=== PATIENT | female | born 1960 | race Two or more races ===

== ENCOUNTER → 2020-12-18 | Outpatient (CLI) | payer MEDICAID ==
[2020-12-18 12:14] LABS: BASO % 0.6 % (0.0-1.0); EOS # 0.1 10^3/uL (0.0-0.5); EOS % 1.2 % (0.0-3.0); HEMATOCRIT 38.3 % (36.0-47.0); HEMOGLOBIN 12.4 g/dl (12.0-15.5); LYMPH # 2.8 10^3/uL (1.5-5.0); LYMPH % 43.5 % (24.0-44.0); MEAN CORPUSCULAR HEMOGLOBIN 28.8 pg (27.0-33.0); MEAN CORPUSCULAR HGB CONC 32.4 g/dl (32.0-36.5); MEAN CORPUSCULAR VOLUME 88.9 fl (80.0-96.0); MONO # 0.4 10^3/uL (0.0-0.8); MONO % 5.6 % (2.0-8.0); NEUTROPHILS # 3.1 10^3/uL (1.5-8.5); NEUTROPHILS % 48.9 % (36.0-66.0); PLATELET COUNT, AUTOMATED 189 10^3/uL (150-450); RED BLOOD COUNT 4.31 10^6/uL (4.00-5.40); WHITE BLOOD COUNT 6.4 10^3/uL (4.0-10.0)
[2020-12-18 12:41] LABS: HEMOGLOBIN A1c 5.7 %
[2020-12-18 12:45] LABS: ALBUMIN 3.7 GM/DL (3.2-5.2); ALT/SGPT 27 U/L (12-78); BILIRUBIN,TOTAL 0.4 MG/DL (0.2-1.0); BLOOD UREA NITROGEN 14 MG/DL (7-18); CALCIUM LEVEL 8.7 MG/DL (8.8-10.2); CARBON DIOXIDE LEVEL 30 MEQ/L (21-32); CHLORIDE LEVEL 106 MEQ/L (98-107); CHOLESTEROL LEVEL 180 MG/DL (<200); CREATININE FOR GFR 0.65 MG/DL (0.55-1.30); FREE T4 0.98 NG/DL (0.76-1.46); GLOMERULAR FILTRATION RATE > 60.0 (>45); GLUCOSE, FASTING 110 MG/DL (70-100); HDL CHOLESTEROL 40 MG/DL (>40); LDL CHOLESTEROL 116 MG/DL (<100); NON-HDL-C 140 MG/DL; POTASSIUM SERUM 3.6 MEQ/L (3.5-5.1); SODIUM LEVEL 140 MEQ/L (136-145); THYROID STIMULATING HORMONE 0.854 uIU/ML (0.358-3.740); TRIGLYCERIDES LEVEL 122 MG/DL (<150)
== END ==
LOC: M LAB 11:14
PROVIDERS: ATTEND Student in an Organized Health Care Education/Training Program
DX: E11.9 Type 2 diabetes mellitus without complications (principal); I10 Essential (primary) hypertension; R53.83 Other fatigue

== ENCOUNTER → 2021-01-01 | Outpatient (CLI) | payer MEDICAID ==
--- NOTE | 2021-01-01 19:02 | REP ---
INDICATION: DORSALGIA, UNSPECIFIED. COMPARISON: None. TECHNIQUE: AP and lateral views of the lumbar spine with thoracal lumbar junction. [id number] extends up to T5-6 disc level. FINDINGS: Patient has intramedullary rods bilaterally with bilateral pedicle screws at T9, left at T7 and T5, right T6 pedicle. No significant kyphosis. There is very minimal levoconvex curvature at the thoracolumbar junction on the AP view. Pedicles and spinous processes in the lumbar spine as well as transverse processes are intact. Posterior rib articulations unremarkable. The lateral view shows marginal osteophytes throughout and facet arthropathy lower lumbar spine at L4-5 and L5-S1. No compression deformity or destructive lesions from T6 through L5. IMPRESSION: S/p intramedullary rods in the thoracic spine extending down to pedicles a T9 with the upper aspect of the rods not on the field of view. No compression deformity or destructive lesion. Some minor degenerative changes at multiple endplates. Some minor facet arthropathy at L4-5, greater at L5-S1. No compression fracture, spondylolysis or other acute bony finding. Very mild levoconvex curve at the thoracolumbar junction and upper lumbar spine. <Electronically signed by Gordon Marks > 01/01/21 [id number]
== END ==
LOC: M RAD 10:52
PROVIDERS: ATTEND Student in an Organized Health Care Education/Training Program
DX: M54.9 Dorsalgia, unspecified (principal)

== ENCOUNTER 2021-01-22 23:19 | Inpatient (IN) | payer MEDICAID, SELFPAY ==
[~2021-01-22] VITALS: Ht 152.4 cm; Wt 59.9 kg
[2021-01-22] MEDS: BISACODYL 5 MG TAB PO SCH (21:00)
[2021-01-22] MEDS ORDERED: GABA-283 PO (23:43)
[2021-01-22] MEDS ORDERED: METF-839 PO (23:43)
[2021-01-22] MEDS ORDERED: ATOR1TAB19 PO (23:43)
[2021-01-22] MEDS ORDERED: LOSA100T8 PO (23:43)
[2021-01-22] MEDS ORDERED: ATEN50TA2 PO (23:43)
[2021-01-22] MEDS ORDERED: OMEP40CA4 PO (23:43)
[2021-01-23 00:16] LABS: BASO % 0.4 % (0.0-1.0); EOS # 0.1 10^3/uL (0.0-0.5); EOS % 1.2 % (0.0-3.0); HEMATOCRIT 38.8 % (36.0-47.0); LYMPH # 3.7 10^3/uL (1.5-5.0); LYMPH % 44.2 % (24.0-44.0); MEAN CORPUSCULAR HEMOGLOBIN 29.3 pg (27.0-33.0); MEAN CORPUSCULAR HGB CONC 33.5 g/dl (32.0-36.5); MEAN CORPUSCULAR VOLUME 87.6 fl (80.0-96.0); MONO # 0.5 10^3/uL (0.0-0.8); MONO % 5.9 % (2.0-8.0); NEUTROPHILS % 48.1 % (36.0-66.0); PLATELET COUNT, AUTOMATED 183 10^3/uL (150-450); RED BLOOD COUNT 4.43 10^6/uL (4.00-5.40); WHITE BLOOD COUNT 8.3 10^3/uL (4.0-10.0)
[2021-01-23] MEDS ORDERED: ISOVUE-370 76% 100ML VIAL As Ordered ONE (00:32)
[2021-01-23 01:07] LABS: CK-MB VALUE MASS 23.6 NG/ML (<3.6); CPK CREATINE PHOSPHOKINASE 114 U/L (26-192); TROPONIN I < 0.02 NG/ML (< 0.10)
[2021-01-23] MEDS ORDERED: BISA5TAB15 PO (01:29)
[2021-01-23] MEDS ORDERED: ACET-683 PO (01:29)
[2021-01-23] MEDS ORDERED: HOME MED LIST COMPLETE! XX SCH (01:30)
[2021-01-23] MEDS ORDERED: LABETALOL 100MG/20ML VIAL IV STA (02:01)
[2021-01-23] MEDS ORDERED: MAALOX 30 ML SUSP *UDC PO PRN (02:05)
[2021-01-23] MEDS ORDERED: MOM 30ML SUSPENSION UDC PO PRN (02:05)
--- NOTE | 2021-01-23 02:27 | HPEPDOC ---
[facility] Medical History & Physical Date of Admission Jan 23, 2021 Date of Service: Jan 23, 2021 History and Physical CHIEF COMPLAINT: SYNCOPE HISTORY OF PRESENT ILLNESS: 60 yo F, with a PMHx of DM2, HTN, back pain s/p surgical hardware implantation in [place], brought to ER by her son, after she suffered a syncopal episode preceded by dizziness. The patient speaks Amharic, and her son is translating. She was out of consciousness for < 10 seconds according to her son, without tonic clonic movement, urinary incontience. He s tates she had a possible drooping or grimace of her lips on the R side, but this resolved as soon as she regained consciousness. Patient has been having elevated BP for past 3 days, with SBP in the 180-200 mmHg range. Patient denies any chest pain, palpitations, fevers, chills, blurred vision, but does endorse recently worsening orthopnea and lower extremity edema with reduced exercise tolerance. On arrival to ER, patient in hypertensive urgency SBP 200 mmHg. No fever, no leukocytosis, no electrolyte abnormalities. EKG showing NSR. CT head, CTA head and neck were reported to ER provider as normal. Unfortunately the final reports are not available in [facility] at the time of my examination. Patient will be admitted to hospitalist service for workup of syncopal episode, possible TIA. PAST MEDICAL HISTORY: HTN DM2 GERD Thoracic compressive myelopathy PAST SURGICAL HISTORY: Spinal surgery with hardware implantation in 2018 Eye surgery SOCIAL HISTORY: Patient denies smoking Patient denies etoh use Patient denies illicit drug use FAMILY HISTORY: Mother, father 2 sons, both healthy ALLERGIES: Please see below. REVIEW OF SYSTEMS: 10 point ROS conducted, relevant findings are noted in the HPI HOME MEDICATIONS: Please see below. PHYSICAL EXAMINATION: VITAL SIGNS: please see below General: NAD, comfortable HEENT: PERRLA, EOMI, sclerae clear Neck: supple, normal ROM, no JVD Respiratory: lungs CTAB, no wheeze, no rales, no crackles CVS: RRR, normal S1, S2, no murmurs Abdo: soft, no masses, no hepatosplenomegaly, BS+, no rebound tenderness Extremities: no edema, pulses 2+ MSK: no joint deformities, normal ROM Neuro: no focal neuro deficits, moving all 4 extremities, CN2-12 intact. Strength 5/5 in all 4 extremities. No nystagmus. Psych: calm, cooperative, AAO x 3 LABORATORY DATA: See below. IMAGING: CT head, CTA head and neck were performed in ER on 01/23/21. I was informed by Dr. Aviles that V-rad confirmed no acute findings. MICROBIOLOGY: Please see below. ASSESSMENT: 60 yo F, with a PMHx of DM2, HTN, back pain s/p surgical hardware implantation in [place], brought to ER by her son, after she suffered a syncopal episode preceded by dizziness. The patient speaks Amharic, and her son is translating. She was out of consciousness for < 10 seconds according to her son, without tonic clonic movement, urinary incontience. He states she had a possible drooping or grimace of her lips on the R side, but this resolved as soon as she regained consciousness. Patient has been having elevated BP for past 3 days, with SBP in the 180-200 mmHg range. Patient denies any chest pain, palpitations, fevers, chills, blurred vision, but does endorse recently worsening orthopnea and lower extremity edema with reduced exercise tolerance. On arrival to ER, patient in hypertensive urgency SBP 200 mmHg. No fever, no leukocytosis, no electrolyte abnormalities. EKG showing NSR. CT head, CTA head and neck were reported to ER provider as normal. Unfortunately the final reports are not available in [facility] at the time of my examination. Patient will be admitted to hospitalist service for workup of syncopal episode, possible TIA. . PLAN: Syncopal episodes 2/2 possible cardiac arrhythmia vs seizure disorder vs TIA - patient is at baseline at the time of my exam - found to be hypertensive in ER - EKG showing NSR - Trop < 0.02 - CT head, CTA head and neck wnl per V-rad - admit to tele floor for monitoring of arrhythmias - check 2D echo - check orthostatics - ordered EEG - to obtain MRI brain wo contrast. Patient has metal hardware from thoracic back surgery in [place] in 2018. Son states he has records at home which may help determine if hardware is safe for MRI - PT/OT ordered. DM2 - ISS, FSBS AC and HS - Hypoglycemic precautions HTN - initially in hypertensive urgency - repeat vitals showing SBP 160 - resume home antihypertensive regimen: losartan 100 mg daily, HCTZ 12.5mg, atenolol 50 mg daily Orthopnea/reduced exercise tolerance - BNP pending - no clinical signs of fluid overload - 2D echo ordered Dispo: pending clinical improvement. Vital Signs Vital Signs Date Time Temp Pulse Resp B/P (MAP) Pulse Ox O2 Delivery O2 Flow Rate FiO2 01/23/21 01:01 98.1 01/22/21 23:21 64 20 207/93 99 Room Air Laboratory Data Labs 24H Laboratory Tests 2 01/22/21 23:56: Immature Granulocyte % (Auto) 0.2, Neutrophils (%) (Auto) 48.1, Lymphocytes (%) (Auto) 44.2H, Monocytes (%) (Auto) 5.9, Eosinophils (%) (Auto) 1.2, Basophils (%) (Auto) 0.4, Neutrophils # (Auto) 4.0, Lymphocytes # (Auto) 3.7, Monocytes # (Auto) 0.5, Eosinophils # (Auto) 0.1, Basophils # (Auto) 0.0, Nucleated Red Blood Cells % (auto) 0.0, Total Creatine Kinase 114, Creatine Kinase MB 23.6H, Creatine Kinase MB Relative Index 20.70H, Troponin I < 0.02 01/23/21 00:12: POC Glucose (Misc Panel) 94, POC Sodium (Misc Panel) 143, POC Potassium (Misc Panel) 3.6, POC Chloride (Misc Panel) 103, POC Total CO2 (Misc Panel) 26.0, POC Blood Urea Nitrogen (Misc Panel 15, POC Ionized Calcium (Misc Panel) 4.7, POC Creatinine (Misc Panel) 0.7, POC Hematocrit (Misc Panel) 38.0 CBC/BMP Laboratory Tests 01/22/21 23:56 Home Medications Scheduled Acetaminophen (Acetaminophen) 500 Mg Tablet, 500 MG PO BID Atenolol (Atenolol) 50 Mg Tablet, 50 MG PO DAILY Atorvastatin Calcium (Atorvastatin Calcium) 10 Mg Tablet, 10 MG PO DAILY Bisacodyl (Bisacodyl) 5 Mg Tablet.dr, 10 MG PO QHS Gabapentin (Gabapentin) 400 Mg Capsule, 400 MG PO TID Losartan/Hydrochlorothiazide (Losartan-Hctz 100-12.5 mg Tab) 1 Each Tablet, 1 TAB PO DAILY Metformin HCl (Metformin HCl) 500 Mg Tablet, 500 MG PO DAILY Omeprazole (Omeprazole) 40 Mg Capsule.dr, 40 MG PO DAILY Allergies Coded Allergies: No Known Allergies (Unverified , 01/22/21) A-FIB/CHADSVASC A-FIB History Current/History of A-Fib/PAF?: No AZRA NOGUERA MD Jan 23, 2021 02:27
[2021-01-23 02:39] LABS: NT-PRO BNP 117 PG/ML (<125)
[2021-01-23] MEDS ORDERED: hydroCHLOROthiazide 12.5 MG CAPSULE PO ONE (03:00)
[2021-01-23 03:53] LABS: RSV AMPLIFICATION NEGATIVE (NEGATIVE)
[2021-01-23 04:30] VITALS: BP 143/66
[2021-01-23] MEDS: ACETAMINOPHEN TAB 650MG DOSE (2X325MG) PO PRN (05:02)
[2021-01-23] MEDS: HEPARIN SOD (PORCINE) 5000UNITS/ML 1ML VIAL/SYRINGE SC SCH ×3 (05:03→21:51)
[2021-01-23 08:00] VITALS: BP_SYST 140; BP_SYST 143; BP_SYST 152; BP_DIAS 56; BP_DIAS 64; BP_DIAS 69
[2021-01-23] MEDS: GABAPENTIN 400MG CAP PO SCH ×3 (08:36→21:51)
[2021-01-23] MEDS: DOCUSATE SODIUM 100MG CAPSULE PO SCH ×2 (08:36→21:51)
[2021-01-23] MEDS: OMEPRAZOLE 20 MG CAP PO SCH (08:36)
[2021-01-23] MEDS: ATORVASTATIN 10 MG TAB PO SCH (08:37)
[2021-01-23] MEDS: hydroCHLOROthiazide 12.5 MG CAPSULE PO SCH (08:37)
[2021-01-23] MEDS: atenoloL 50 MG TAB PO SCH (08:37)
[2021-01-23] MEDS: LOSARTAN 50MG TABLET PO SCH (08:37)
[2021-01-23] MEDS ORDERED: atenoloL 50 MG TAB PO SCH (09:00)
[2021-01-23] MEDS ORDERED: hydroCHLOROthiazide 12.5 MG CAPSULE PO SCH (09:00)
[2021-01-23] MEDS ORDERED: SLF 3 ML SYR IV PRN (10:05)
[2021-01-23 12:00] VITALS: BP 140/65
[2021-01-23] MEDS: SLF 3 ML SYR IV SCH ×2 (13:30→21:52)
[2021-01-23 16:00] VITALS: BP 103/59
[2021-01-23 17:43] VITALS: BP 116/57
[2021-01-23 20:00] VITALS: BP 134/60
--- NOTE | 2021-01-23 20:23 | ECGEPIP ---
[facility] - ED Test Date: 2021-01-23 Pat Name: MOST QUINN Department: Room: [place] [address] Gender: Female Pathology Technician: GRACE : 1960 Requested By: John Silveira Order Number: [id number] Reading MD: Milli Alvarado Measurements Intervals [place] Rate: 61 P: 35 NM: 158 QRS: 23 QRSD: 76 T: 11 QT: 420 QTc: 422 Interpretive Statements Normal sinus rhythm No prior Electronically Signed on 01-23-2021 20:23:06 EDT by Milli Alvarado
[2021-01-23] MEDS: BISACODYL 5 MG TAB PO SCH (21:50)
[2021-01-24] VITALS: BP 119/58
[2021-01-24 04:00] VITALS: BP 118/60
[2021-01-24 05:57] LABS: HEMATOCRIT 39.1 % (36.0-47.0); HEMOGLOBIN 12.8 g/dl (12.0-15.5); MEAN CORPUSCULAR HEMOGLOBIN 29.1 pg (27.0-33.0); MEAN CORPUSCULAR HGB CONC 32.7 g/dl (32.0-36.5); MEAN CORPUSCULAR VOLUME 88.9 fl (80.0-96.0); PLATELET COUNT, AUTOMATED 183 10^3/uL (150-450); WHITE BLOOD COUNT 8.2 10^3/uL (4.0-10.0)
[2021-01-24] MEDS: HEPARIN SOD (PORCINE) 5000UNITS/ML 1ML VIAL/SYRINGE SC SCH ×3 (06:00→22:16)
[2021-01-24 06:26] LABS: BLOOD UREA NITROGEN 13 MG/DL (7-18); CALCIUM LEVEL 8.5 MG/DL (8.8-10.2); CARBON DIOXIDE LEVEL 32 MEQ/L (21-32); CHLORIDE LEVEL 105 MEQ/L (98-107); GLOMERULAR FILTRATION RATE > 60.0 (>45); GLUCOSE, FASTING 112 MG/DL (70-100); SODIUM LEVEL 139 MEQ/L (136-145)
[2021-01-24] MEDS: SLF 3 ML SYR IV SCH ×3 (06:38→22:16)
[2021-01-24 08:00] VITALS: BP 141/63
[2021-01-24] MEDS: OMEPRAZOLE 20 MG CAP PO SCH (08:16)
[2021-01-24] MEDS: hydroCHLOROthiazide 12.5 MG CAPSULE PO SCH (08:16)
[2021-01-24] MEDS: LOSARTAN 50MG TABLET PO SCH (08:16)
[2021-01-24] MEDS: ATORVASTATIN 10 MG TAB PO SCH (08:16)
[2021-01-24] MEDS: DOCUSATE SODIUM 100MG CAPSULE PO SCH ×2 (08:16→20:33)
[2021-01-24] MEDS: atenoloL 50 MG TAB PO SCH (08:17)
[2021-01-24] MEDS: GABAPENTIN 400MG CAP PO SCH ×3 (08:17→20:33)
--- NOTE | 2021-01-24 08:21 | REP ---
INDICATION: r/o CVA. Repeat dictation. Preliminary report is provided at the time of the exam by oleg LORENZ. COMPARISON: Comparison head CT study 23 January 2021 ... TECHNIQUE: Axial and sagittal imaging planes are utilized for T1 and T2-weighted scans. Sequences include spin-echo, fast spin echo, FLAIR, and diffusion weighted sequences. FINDINGS: No bony calvarial lesion is seen. Craniocervical junction and upper cervical cord are normal in appearance. There is no MR evidence of significant paranasal sinus disease. No intraorbital abnormality is seen. The lateral, third, and fourth ventricles are normal in size and position. Barr-white differentiation pattern is intact above and below the tentorium. There is no evidence of intracranial hemorrhage. No mass, infarction, extra-axial fluid collection or midline shift is seen. No abnormal white matter lesion is seen. IMPRESSION: Negative noncontrast brain MRI study. <Electronically signed by Jm Leon > 01/24/21 [id number]
--- NOTE | 2021-01-24 08:22 | REP ---
INDICATION: syncope. Repeat dictation. Preliminary report is provided at the time of the exam by oleg MAURER. COMPARISON: None. TECHNIQUE: Helical scanning is acquired. 5 mm axial images were reformatted. Coronal MPR images were generated. FINDINGS: Bone window settings demonstrate an intact bony calvarium. There is no evidence of skull fracture or incidental bony calvarial lesion. The visualized paranasal sinuses appear clear. No intraorbital abnormality is seen. On soft tissue window setting images; the lateral, third, and fourth ventricles are normal in size and position. Barr-white differentiation pattern is normal above and below the tentorium. There are is no evidence of intracranial hemorrhage. No mass, edema, infarction, or midline shift is seen. No extra-axial fluid collection is appreciated. IMPRESSION: Negative noncontrast head CT. <Electronically signed by Jm Leon > 01/24/21 [id number]
--- NOTE | 2021-01-24 08:24 | REP ---
INDICATION: syncope COMPARISON: Repeat dictation. Preliminary report is provided at the time of the exam by oleg LORENZ. TECHNIQUE: Contrast enhancement dose is 100 mL of intravenous Isovue 370. Helical scanning is acquired. 2 mm axial images are re-formatted. Coronal and sagittal MPR images are generated. Coronal and sagittal MIP and oblique MPR images are generated. 3D surface rendered images are generated and viewed rotationally. FINDINGS: There is good opacification of the arterial tree. The visualized transverse aortic arch is unremarkable with minimal vascular calcification. Great vessel origins are intact. The subclavian arteries are unremarkable. The common carotid arteries are widely patent. Carotid bifurcations are free of significant atherosclerotic change. No stenosis is seen in either internal carotid. These cervical segments of the vertebral arteries are patent and symmetric.. Maximum intensity projection and MPR images show no additional abnormality. IMPRESSION: Unremarkable CT angiography of the neck. <Electronically signed by Jm Leon > 01/24/21 [id number]
--- NOTE | 2021-01-24 08:39 | REP ---
INDICATION: syncope. Repeat dictation. Preliminary report is provided at the time of the exam by oleg LORENZ. COMPARISON: Comparison is made with noncontrast head CT from the same date.. TECHNIQUE: CT contrast dose: 100 ml of intravenous Isovue 370. CT technique: Helical scanning is acquired. 2 mm axial images are reformatted. Maximal intensity projection and multiplanar re-formation images are generated along with 3-D surface rendered color imaging. FINDINGS: There is good opacification of the arterial tree. The distal vertebral arteries are patent. Left is somewhat smaller than right. Basilar artery is patent. Posterior cerebral and superior cerebellar vessels are unremarkable. The distal internal carotid arteries are intact and symmetric. No significant plaquing. The anterior cerebral and middle cerebral arteries are patent and symmetric. There is no evidence of angeles aneurysm or arteriovenous malformation. The dural sinuses are patent. No venous abnormality is seen. IMPRESSION: Unremarkable CT angiography of the brain. <Electronically signed by Jm Leon > 01/24/21 [id number]
--- NOTE | 2021-01-24 12:39 | IPNPDOC ---
Text Note Date of Service The patient was seen on 01/24/21. NOTE Subjective: Patient seen and examined at bedside. No acute overnight events reported. Patient voices no new medical complaints this morning. She denies any further headaches, dizziness, shortness of breath. PHYSICAL EXAMINATION: VITAL SIGNS: please see below General: NAD, comfortable HEENT: PERRLA, EOMI, sclerae clear Neck: supple, normal ROM, no JVD Respiratory: lungs CTAB, no wheeze, no rales, no crackles CVS: RRR, normal S1, S2, no murmurs Abdo: soft, BS+, no rebound tenderness Extremities: no edema, pulses 2+ MSK: no joint deformities, normal ROM Neuro: no focal neuro deficits, moving all 4 extremities, CN2-12 intact. Strength 5/5 in all 4 extremities. No nystagmus. Psych: calm, cooperative, AAO x 3 ASSESSMENT: 60 yo F, with a PMHx of DM2, HTN, back pain s/p surgical hardware implantation in [place], brought to ER by her son, after she suffered a syncopal episode preceded by dizziness. The patient speaks Setswana, and her son is translating. She was out of consciousness for < 10 seconds according to her son, without tonic clonic movement, urinary incontience. He states she had a possible drooping or grimace of her lips on the R side, but this resolved as soon as she regained consciousness. Patient has been having elevated BP for past 3 days, with SBP in the 180-200 mmHg range. Patient denies any chest pain, palpitations, fevers, chills, blurred vision, but does endorse recently worsening orthopnea and lower extremity edema with reduced exercise tolerance. On arrival to ER, patient in hypertensive urgency SBP 200 mmHg. No fever, no leukocytosis, no electrolyte abnormalities. EKG showing NSR. CT head, CTA head and neck were reported to ER provider as normal. Unfortunately the final reports are not available in [employer] at the time of my examination. Patient will be admitted to hospitalist service for workup of syncopal episode, possible TIA. . PLAN: Syncopal episodes - workup unrevealing - orthostatics negative, imaging negative - echocardiogram pending report - no further episoes - son described her working in the garden in the sun, symptoms possibly secondary to heat exposure - PT requiring 1-2 more sessions - no events on telemetry - EKG showing NSR #DM2 - ISS, FSBS AC and HS - Hypoglycemic precautions #HTN - initially in hypertensive urgency - repeat vitals showing SBP 160 - resumed home antihypertensive regimen: losartan 100 mg daily, HCTZ 12.5mg, atenolol 50 mg daily #Orthopnea/reduced exercise tolerance - no clinical signs of fluid overload - 2D echo pending report Dispo: pending further PT, anticipate d/c in 24-48 hours; extensive discussion with son Nico - [phone]. VS,Fishbone, I+O VS, Fishbone, I+O Laboratory Tests 01/24/21 05:36 Vital Signs Date Time Temp Pulse Resp B/P (MAP) Pulse Ox O2 Delivery O2 Flow Rate FiO2 01/24/21 08:17 62 01/24/21 08:16 120/60 01/24/21 08:00 97.7 16 99 Room Air I&O- Last 24 Hours up to 6 AM 01/24/21 06:00 Intake Total 120 ml Output Total 600 ml Balance -480 ml YUE CLARK MD Jan 24, 2021 12:39
[2021-01-24 14:00] VITALS: BP 121/63
[2021-01-24 15:36] VITALS: BP 102/49
[2021-01-24 19:56] VITALS: BP 122/56
[2021-01-24] MEDS: BISACODYL 5 MG TAB PO SCH (20:33)
[2021-01-25 00:09] VITALS: BP 123/58
[2021-01-25 04:00] VITALS: BP 122/61
[2021-01-25] MEDS: ACETAMINOPHEN TAB 650MG DOSE (2X325MG) PO PRN (04:50)
[2021-01-25 05:23] LABS: HEMATOCRIT 38.6 % (36.0-47.0); HEMOGLOBIN 12.6 g/dl (12.0-15.5); MEAN CORPUSCULAR HEMOGLOBIN 29.2 pg (27.0-33.0); MEAN CORPUSCULAR HGB CONC 32.6 g/dl (32.0-36.5); MEAN CORPUSCULAR VOLUME 89.4 fl (80.0-96.0); PLATELET COUNT, AUTOMATED 175 10^3/uL (150-450); RED BLOOD COUNT 4.32 10^6/uL (4.00-5.40); WHITE BLOOD COUNT 8.1 10^3/uL (4.0-10.0)
[2021-01-25 05:40] LABS: BLOOD UREA NITROGEN 12 MG/DL (7-18); CALCIUM LEVEL 8.6 MG/DL (8.8-10.2); CARBON DIOXIDE LEVEL 34 MEQ/L (21-32); CHLORIDE LEVEL 105 MEQ/L (98-107); CREATININE FOR GFR 0.65 MG/DL (0.55-1.30); GLOMERULAR FILTRATION RATE > 60.0 (>45); GLUCOSE, FASTING 104 MG/DL (70-100); POTASSIUM SERUM 3.4 MEQ/L (3.5-5.1); SODIUM LEVEL 141 MEQ/L (136-145)
[2021-01-25] MEDS: HEPARIN SOD (PORCINE) 5000UNITS/ML 1ML VIAL/SYRINGE SC SCH (05:50)
[2021-01-25] MEDS: SLF 3 ML SYR IV SCH (06:03)
[2021-01-25 07:30] VITALS: BP 131/59
[2021-01-25] MEDS: OMEPRAZOLE 20 MG CAP PO SCH (09:03)
[2021-01-25] MEDS: hydroCHLOROthiazide 12.5 MG CAPSULE PO SCH (09:03)
[2021-01-25 09:04] VITALS: BP 131/59
[2021-01-25] MEDS: ATORVASTATIN 10 MG TAB PO SCH (09:04)
[2021-01-25] MEDS: LOSARTAN 50MG TABLET PO SCH (09:04)
[2021-01-25] MEDS: atenoloL 50 MG TAB PO SCH (09:04)
[2021-01-25] MEDS: GABAPENTIN 400MG CAP PO SCH (09:04)
[2021-01-25] MEDS: DOCUSATE SODIUM 100MG CAPSULE PO SCH (09:04)
--- NOTE | 2021-01-25 09:18 | EEG ---
ELECTROENCEPHALOGRAM DATE: 01/24/2021 REFERRING PHYSICIAN: AZRA NOGUERA MD DIAGNOSIS: Syncope, concern for seizure. EEG#: [id number] HISTORY: The patient is a 60-year-old woman who was admitted to [facility] after a passing out spell which lasted for less than ten seconds. There were no tonic-clonic movements or urinary incontinence according to the patient's son. Her blood pressure was running high between 180-200. She is currently taking Atenolol, atorvastatin, Gabapentin, hydrochlorothiazide, losartan, omeprazole, etc. TECHNICAL DESCRIPTION: This digital electroencephalogram (EEG) was recorded by 21 scalp, ear, and two electrocardiogram (EKG) electrodes and was reviewed in bipolar and referential montages following reformatting in 10-20 international electrode placement system. INTERPRETATION: The patient was noted to be in awake and drowsy states during this EEG. Resting and awake background rhythm consisted of well-formed posterior dominant rhythm with anterior/posterior gradient comprising of 9 Hz alpha activity measuring 15-40 microvolts in amplitude which was symmetric and reactive to eye opening. Attenuation of posterior dominant rhythm was seen during transition to drowsiness. Anteriorly low voltage and mixed frequency activity was noted. No sleep was achieved. Hyperventilation was not performed. Photic stimulation remained unremarkable. EKG revealed normal sinus rhythm. No focal, lateralizing, or epileptiform abnormalities were seen. No relevant clinical activity was noted. CONCLUSION: This EEG in awake and drowsy states is within normal limits.
[2021-01-25] MEDS ORDERED: POTASSIUM CHLORIDE 10 MEQ SR TABLET PO ONE (10:25)
[2021-01-25 12:00] VITALS: BP 125/59
--- NOTE | 2021-01-25 23:23 | DS.PDOC ---
Discharge Summary General Date of Admission Jan 23, 2021 at 02:03 Date of Discharge Jan 25, 2021 Discharge Summary PROCEDURES PERFORMED DURING STAY: None ADMITTING DIAGNOSES: 1. Syncope 2. DM type 2 3. Hypertension DISCHARGE DIAGNOSES: 1. Syncope 2. DM type 2 3. Hypertension COMPLICATIONS/CHIEF COMPLAINT: Syncope. HISTORY OF PRESENT ILLNESS: Copied from admitting attending's H&P " 60 yo F, with a PMHx of DM2, HTN, back pain s/p surgical hardware implantation in [place], brought to ER by her son, after she suffered a syncopal episode preceded by dizziness. The patient speaks Azeri, and her son is translating. She was out of consciousness for < 10 seconds according to her son, without tonic clonic movement, urinary incontience. He states she had a possible drooping or grimace of her lips on the R side, but this resolved as soon as she regained consciousness. Patient has been having elevated BP for past 3 days, with SBP in the 180-200 mmHg range. Patient denies any chest pain, palpitations, fevers, chills, blurred vision, but does endorse recently worsening orthopnea and lower extremity edema with reduced exercise tolerance. On arrival to ER, patient in hypertensive urgency SBP 200 mmHg. No fever, no leukocytosis, no electrolyte abnormalities. EKG showing NSR. CT head, CTA head and neck were reported to ER provider as normal. Unfortunately the final reports are not available in [facility] at the time of my examination. Patient will be admitted to hospitalist service for workup of syncopal episode, possible TIA. " HOSPITAL COURSE: Admitting attending was concerned for possible seizure or TIA. EEG was within normal limits. CT angio head and neck and MRI brain were negative. No events on the telemetry. Patient most likely had a syncopal event. Discussed with patient's family and patient. Patient feels well today. Denies chest pain or dyspnea. She felt ready for home, and she was subsequently discharged home. DISCHARGE MEDICATIONS: Please see below. ALLERGIES: Please see below. PHYSICAL EXAMINATION ON DISCHARGE: VITAL SIGNS: Please see below. GENERAL: Comfortable, in no apparent distress HEENT: Sclera clear NECK: Supple CARDIOVASCULAR EXAMINATION: Regular rate and rhythm RESPIRATORY EXAMINATION: Lungs clear to auscultation bilaterally ABDOMINAL EXAMINATION: Soft, non-tender, normal bowel sounds EXTREMITIES: No pitting edema bilaterally NEUROLOGICAL EXAMINATION: No focal deficits PSYCHIATRIC EXAMINATION: Normal mood and affect LABORATORY DATA: Please see below. IMAGING: Radiologist interpretation CT angio head Unremarkable CT angiography of the brain CT angio neck Unremarkable CT angiography of the neck. MRI Brain Negative noncontrast brain MRI study. PROGNOSIS: Good ACTIVITY: As tolerated. DIET: Carbohydrate consistent diet DISCHARGE PLAN: Home DISPOSITION: Home, Self-Care. DISCHARGE INSTRUCTIONS: 1. Follow up with PCP in 1 week 2. Follow up with your PCP for echocardiogram results ITEMS TO FOLLOWUP ON ON OUTPATIENT: 1. Echocardiogram results DISCHARGE CONDITION: Stable Total time spent on discharge planning, discharge summary, and medication reconciliation: 45 minutes Vital Signs/I&Os Vital Signs Date Time Temp Pulse Resp B/P (MAP) Pulse Ox O2 Delivery O2 Flow Rate FiO2 01/25/21 12:00 97.4 61 20 125/59 (81) 98 Room Air I&O- Last 24 Hours up to 6 AM 01/25/21 06:00 Intake Total 780 ml Output Total 450 ml Balance 330 ml Laboratory Data Labs 24H Laboratory Tests 2 01/25/21 04:55: Nucleated Red Blood Cells % (auto) 0.0, Anion Gap 2L, Glomerular Filtration Rate > 60.0, Calcium Level 8.6L CBC/BMP Laboratory Tests 01/25/21 04:55 Microbiology Microbiology 01/23/21 Blood Culture - Preliminary, Resulted No Growth after 48 hours. All Specime... 01/23/21 Blood Culture - Preliminary, Resulted No Growth after 48 hours. All Specime... Discharge Medications Scheduled Acetaminophen (Acetaminophen) 500 Mg Tablet, 500 MG PO BID, (Reported) Atenolol (Atenolol) 50 Mg Tablet, 50 MG PO DAILY, (Reported) Atorvastatin Calcium (Atorvastatin Calcium) 10 Mg Tablet, 10 MG PO DAILY, (Reported) Bisacodyl (Bisacodyl) 5 Mg Tablet.dr, 10 MG PO QHS, (Reported) Gabapentin (Gabapentin) 400 Mg Capsule, 400 MG PO TID, (Reported) Losartan/Hydrochlorothiazide (Losartan-Hctz 100-12.5 mg Tab) 1 Each Tablet, 1 TAB PO DAILY, (Reported) Metformin HCl (Metformin HCl) 500 Mg Tablet, 500 MG PO DAILY, (Reported) Omeprazole (Omeprazole) 40 Mg Capsule.dr, 40 MG PO DAILY, (Reported) Allergies Coded Allergies: No Known Allergies (Unverified , 01/22/21) YONATAN SALEH DO Jan 25, 2021 23:23
--- NOTE | 2021-01-26 15:53 | ECHO ---
ECHOCARDIOGRAM DATE OF PROCEDURE: 01/25/2021 Age: Gender: Height: 152 cm Weight: 58 kg REFERRING PHYSICIAN: Crow Manzano MD INDICATION: Syncope MEASUREMENTS: IVS 0.8 LV 4.1 LVPW 0.9 LA 3.3 Aorta 2.9 Left atrial volume index 17 Mitral E wave velocity is 48; A wave 75 E prime septal 5.4 E prime lateral 5.4 FINDINGS: This study is of adequate technical quality with somewhat challenging visualization. Underlying sinus rhythm. Normal left ventricle (LV) size with normal LV systolic function. Estimated left ventricular ejection fraction (LVEF) 65-70%. Normal right ventricle (RV) size and systolic function. Both atrial appear normal. Aortic, mitral and tricuspid valves appear normal. Pulmonic valve was not well visualized. No pericardial effusion is noted. Aortic root is normal. Aortic arch was not well seen. Doppler interrogation reveals competent aortic valve. There is trace mitral and tricuspid insufficiency. Mitral inflow pattern and tissue Doppler imaging of mitral annulus revealed grade 1 diastolic dysfunction. CONCLUSIONS: 1. Study is of acceptable technical quality. Underlying sinus rhythm. 2. Normal left ventricle (LV) size with normal LV systolic function and estimated left ventricular ejection fraction (LVEF) 65-70%. Grade 1 diastolic dysfunction. 3. Normal right ventricle (RV) size and systolic function. 4. No significant valvular disease. 5. Normal central venous pressure. 6. Unable to estimate pulmonary artery pressure. 7. No findings to explain syncopal event.
== END 2021-01-25 14:00 | disposition home or self-care (01) | DRG 204 ==
LOC: M ED 23:19 → M ED INP 01-23 02:03 → M PCU 01-23 04:16
PROVIDERS: ADMIT Family Medicine; ATTEND Internal Medicine
DX: R55 Syncope and collapse (principal); I16.0 Hypertensive urgency; I10 Essential (primary) hypertension; E11.9 Type 2 diabetes mellitus without complications; K21.9 Gastro-esophageal reflux disease without esophagitis; R06.01 Orthopnea; Z79.84 Long term (current) use of oral hypoglycemic drugs; Z79.899 Other long term (current) drug therapy

== ENCOUNTER 2021-02-13 19:07 | Observation (INO) | payer MEDICAID, SELFPAY ==
[~2021-02-13] VITALS: Ht 152.4 cm; Wt 51.0 kg
[~2021-02-13 19:07] MED LIST: ACET-683 PO; ATEN50TA2 PO; ATOR1TAB19 PO; BISA5TAB15 PO; GABA-283 PO; LOSA100T8 PO; METF-839 PO; OMEP40CA4 PO
[2021-02-13] MEDS ORDERED: atenoloL 50 MG TAB PO ONE (20:10)
[2021-02-13 20:31] LABS: BASO % 0.5 % (0.0-1.0); EOS # 0.1 10^3/uL (0.0-0.5); EOS % 1.2 % (0.0-3.0); HEMATOCRIT 38.4 % (36.0-47.0); LYMPH # 3.5 10^3/uL (1.5-5.0); LYMPH % 40.6 % (24.0-44.0); MEAN CORPUSCULAR HEMOGLOBIN 29.5 pg (27.0-33.0); MEAN CORPUSCULAR HGB CONC 33.9 g/dl (32.0-36.5); MEAN CORPUSCULAR VOLUME 87.1 fl (80.0-96.0); MONO # 0.7 10^3/uL (0.0-0.8); NEUTROPHILS # 4.3 10^3/uL (1.5-8.5); NEUTROPHILS % 49.1 % (36.0-66.0); PLATELET COUNT, AUTOMATED 224 10^3/uL (150-450); RED BLOOD COUNT 4.41 10^6/uL (4.00-5.40); WHITE BLOOD COUNT 8.6 10^3/uL (4.0-10.0)
[2021-02-13] MEDS ORDERED: LABETALOL 100MG/20ML VIAL IV STA (20:55)
[2021-02-13 21:12] LABS: ALBUMIN 3.5 GM/DL (3.2-5.2); ALT/SGPT 34 U/L (12-78); BILIRUBIN,DIRECT 0.1 MG/DL (0.0-0.2); BILIRUBIN,TOTAL 0.4 MG/DL (0.2-1.0); BLOOD UREA NITROGEN 8 MG/DL (7-18); CALCIUM LEVEL 9.1 MG/DL (8.8-10.2); CARBON DIOXIDE LEVEL 30 MEQ/L (21-32); CHLORIDE LEVEL 108 MEQ/L (98-107); CK-MB VALUE MASS 1.4 NG/ML (<3.6); CPK CREATINE PHOSPHOKINASE 101 U/L (26-192); CREATININE FOR GFR 0.63 MG/DL (0.55-1.30); FREE T4 1.01 NG/DL (0.76-1.46); GLOMERULAR FILTRATION RATE > 60.0 (>45); GLUCOSE, FASTING 82 MG/DL (70-100); LIPASE 183 U/L (73-393); MB/CK RELATIVE INDEX 1.39 (< OR =4); SODIUM LEVEL 141 MEQ/L (136-145); THYROID STIMULATING HORMONE 0.401 uIU/ML (0.358-3.740); TOTAL PROTEIN 7.3 GM/DL (6.4-8.2); TROPONIN I < 0.02 NG/ML (< 0.10)
[2021-02-13] MEDS ORDERED: ISOVUE-370 76% 100ML VIAL As Ordered ONE (21:37)
[2021-02-13] MEDS ORDERED: HOME MED LIST COMPLETE! XX SCH (23:40)
[2021-02-13] MEDS ORDERED: ACETAMINOPHEN TAB 650MG DOSE (2X325MG) PO PRN (23:55)
[2021-02-13] MEDS ORDERED: MOM 30ML SUSPENSION UDC PO PRN (23:55)
[2021-02-13] MEDS ORDERED: DEXTROSE 50% 50 ML SYRINGE IV PRN (23:55)
[2021-02-13] MEDS ORDERED: GLUCOSE 4GM CHEW TABLET PO PRN (23:55)
[2021-02-13] MEDS ORDERED: GLUCAGON INJ 1MG VIAL SC PRN (23:55)
[2021-02-13] MEDS ORDERED: hydrALAZINE 20MG/ML 1ML VIAL (J0360 PER 20MG) IV PRN (23:55)
[2021-02-14 00:55] LABS: RSV AMPLIFICATION NEGATIVE (NEGATIVE)
[2021-02-14 02:00] VITALS: BP 154/82
[2021-02-14 02:30] LABS: HEMATOCRIT 37.1 % (36.0-47.0); HEMOGLOBIN 12.3 g/dl (12.0-15.5); MEAN CORPUSCULAR HEMOGLOBIN 29.1 pg (27.0-33.0); MEAN CORPUSCULAR HGB CONC 33.2 g/dl (32.0-36.5); MEAN CORPUSCULAR VOLUME 87.9 fl (80.0-96.0); PLATELET COUNT, AUTOMATED 218 10^3/uL (150-450); RED BLOOD COUNT 4.22 10^6/uL (4.00-5.40); WHITE BLOOD COUNT 8.7 10^3/uL (4.0-10.0)
[2021-02-14 03:14] LABS: ALBUMIN 3.3 GM/DL (3.2-5.2); ALT/SGPT 33 U/L (12-78); BILIRUBIN,TOTAL 0.6 MG/DL (0.2-1.0); BLOOD UREA NITROGEN 8 MG/DL (7-18); CARBON DIOXIDE LEVEL 29 MEQ/L (21-32); CHLORIDE LEVEL 107 MEQ/L (98-107); CREATININE FOR GFR 0.64 MG/DL (0.55-1.30); GLOMERULAR FILTRATION RATE > 60.0 (>45); GLUCOSE, FASTING 86 MG/DL (70-100); MAGNESIUM LEVEL 2.4 MG/DL (1.8-2.4); POTASSIUM SERUM 3.8 MEQ/L (3.5-5.1); SODIUM LEVEL 142 MEQ/L (136-145); TOTAL PROTEIN 6.9 GM/DL (6.4-8.2)
[2021-02-14 04:00] VITALS: BP 135/65
[2021-02-14] MEDS ORDERED: HumaLOG INSULIN (NovoLOG) PER UNIT SC SCH ×2 (07:30→21:00)
[2021-02-14 07:36] VITALS: BP 159/68
[2021-02-14 08:12] VITALS: BP 166/65
[2021-02-14] MEDS ORDERED: ATORVASTATIN 10 MG TAB PO SCH (09:00)
[2021-02-14] MEDS ORDERED: LOSARTAN 50MG TABLET PO SCH (09:00)
[2021-02-14] MEDS ORDERED: OMEPRAZOLE 20 MG CAP PO SCH (09:00)
[2021-02-14] MEDS ORDERED: atenoloL 50 MG TAB PO SCH (09:00)
[2021-02-14] MEDS ORDERED: ENOXAPARIN 40MG/0.4ML SYRINGE (J1650 PER 10MG) SC SCH (09:00)
[2021-02-14] MEDS ORDERED: GABAPENTIN 400MG CAP PO SCH (09:00)
[2021-02-14] MEDS ORDERED: DOCUSATE SODIUM 100MG CAPSULE PO SCH (09:00)
[2021-02-14] MEDS ORDERED: hydroCHLOROthiazide 12.5 MG CAPSULE PO SCH (09:00)
[2021-02-14] MEDS ORDERED: BISACODYL 5 MG TAB PO SCH (21:00)
== END 2021-02-14 11:47 | disposition home health service (06) ==
LOC: M ED 19:07 → M ED INP 19:08 → UNDOADMOB 19:08 → M ED INP 19:09 → ENRESERV 02-14 01:04 → M PCU 02-14 01:50
PROVIDERS: ADMIT Family Medicine; ATTEND Family Medicine
DX: I16.0 Hypertensive urgency (principal); R07.89 Other chest pain; E11.9 Type 2 diabetes mellitus without complications; K21.9 Gastro-esophageal reflux disease without esophagitis; Z79.899 Other long term (current) drug therapy; Z79.84 Long term (current) use of oral hypoglycemic drugs
CPT/HCPCS: 36415; 70450; 71046; 71275; 80048; 80053; 80076; 82550; 82553; 83690; 83735; 84439; 84443; 85025; 85027; 87631; 93005; 93041; 94760; 96372; 96374; 99285; J1650; Q9967

== ENCOUNTER 2021-05-24 20:27 | Emergency (ER) | payer MEDICAID ==
[~2021-05-24] VITALS: Ht 152.4 cm; Wt 60.4 kg
--- OUTSIDE RECORDS SUMMARY | 2021-05-24 20:31 | CCD ---
Author Author [facility] [employer] [facility] Syst ems Organization [facility] [employer] Syst ems Address Unknown Phone Unavailable Care Team Providers Care Oxyhydrogen Welder Name Role Phone Bibi Adams Unavailable PROBLEMS Type Condition ICD9-CM Code SHR49-XM Code Onset Dates Condition S tatus W/U Status Risk SNOMED Code Notes Problem Type 2 diabetes mellitus wit hout complication, without long-term current use of insulin E11.9 Active confirmed 283060014 Problem Other chronic pain G89.29 Active confirmed 8 2632599 Problem Hypertension, unspecified type I10 Active confir med [id number] ALLERGIES No Known Allergies ENCOUNTERS from 1960 to 2021-02-25 Encounter Location Date Provider Diagnosis [facility] [id number] [place] [address] [place] [address] 08 Feb, 2021 Bibi Adams Hypertension, unspecified ty pe I10 and Hospital discharge follow-up Z09 IMMUNIZATIONS No Information SOCIAL HISTORY Tobacco Use: Social History Observation Description Date Details (start date - stop date) Never Smoker Sex Assigned At : Social History Observation Description Sex Assigned At Unknown Language: Question Answer Notes Languages spoken: Other Alcohol Screening: Question Answer Notes Did you have a drink containing alcohol in the past year? No Points 0 Interpretation Negative Tobacco Use: Question Answer Notes Are you a: never smoker REASON FOR REFERRAL from 1960 to 2021-02-25 Reason 60 y old F with uncontrolled hypertension depiste being on 3 antihypertensives. recent hospitalization for hypertensive urgency & associated chest pains and headaches, for stress test evaluation. Diagnosis 1 Hypertension, unspecified ty pe (I10) Referral Organization [facility] Vamsi Referring Provider First Name Bibi Referring Provider Last Name Bryan Referring Provider Specialty Family Medicine Referred Provider Irving Temple Referred Provider Specialty Cardiology Referral Priority Urgent General Notes Madhuri Purdy 02/23/2021 4:17 :20 PM > Sent VITAL SIGNS Weight 123 lbs Feb, Weight-kg 55.79 kg Feb, Height 60 in Feb, BMI 24.02 kg/m2 Feb, Heart Rate 52 /min Feb, Respiratory Rate 18 /min Feb, Temperature 96.8 degrees Fahrenheit Feb, Oximetry 99 Feb, Blood pressure systolic 173 mm Hg Feb, Blood pressure diastolic 74 mm Hg Feb, MEDICATIONS Medication SIG (Take, Route, Frequency, Duration) Notes Start Da te End Date Status Atorvastatin Calcium 10 MG 1 tablet Orally Once a day for 30 day(s) Active Tylenol 325 MG 1 tablet as needed Orally every 6 hrs Active Losartan Potassium-HCTZ 100-25 MG 1 tablet Orally Once a day for 30 day(s) Feb, Active metFORMIN HCl 500 MG 1 tablet with a meal Orally Once a day for 90 da ys Active Omeprazole 40 MG 1 capsule 30 minutes before morning meal Orally Once a day for 90 days Active Bisacodyl 5 MG 2 tablet as needed Orally Once a day for 30 days Active Atenolol 50 MG 1 tablet Orally Once a day bid on [facility] discharge Active Meclizine HCl 25 MG 1 tablet as needed for dizzi ness Orally three times a day for 30 day(s) Jan, Active Gabapentin 400 MG 1 capsule Orally Three times a day 400mg on discharge 02/14/21 tid Active PROCEDURES No Information RESULTS No Results REASON FOR VISIT [facility] D/C 02/14 HTN Urgency MEDICAL (GENERAL) HISTORY Type Description Date Medical History Hypertension Medical History Thoracic Compressive Myelopathy Medical History Gerd Medical History Diabetes Surgical History Spinal Surgery 2018 Surgical History eye surgery Hospitalization History Syncope - [facility] 01/22-01/25/21 Hospitalization History HTN Urgency - [facility] 02/12-02/14/21 Goals Section No Information Health Concerns No Information MEDICAL EQUIPMENT No Information MENTAL STATUS No Information FUNCTIONAL STATUS No Information ASSESSMENTS Encounter Date Diagnosis Assessment Notes Treatment Notes Treatm ent Clinical Notes Feb, Hypertension, unspecified type (ICD-10 - I10) Will increase dosage of losartan-hydrochlorothiazide from 50-12.5, to 100-25mg daily. Will send referral to Cardiology as URGENT; to have evaluated for stress testing which was recommended upon discharge from hospital. Counseled on low- salt diet and exercise as tolerated. Pt has f/u in 1 week for blood pressure check. Feb, Hospital discharge follow-up (ICD-10 - Z09) PLAN OF TREATMENT Medication Medication Name Sig Start Date Stop Date Losartan Potassium-HCTZ 100-25 MG 1 tablet Orally Once a day for 30 day(s) Feb, Treatment Notes Assessment Notes Clinical Notes Hypertension, unspecified type Will incr ease dosage of losartan- hydrochlorothiazide from 50-12.5, to 100-25mg daily. Will send referral to Cardiology as URGENT; to have evaluated for stress testing which was recommended upon discharge from hospital. Counseled on low-salt diet and exercise as tolerated. Pt has f/u in 1 week for blood pressure check. Referrals Referral Date Details 60 y old F with uncontrolled hypertension depiste being on 3 antihypertensives. recent hospitalization for hypertensive urgency & associated chest pains and headaches, for stress test evaluation., Irving Temple Next Appt Details prn Reason:already has appt on 03/04, BP f/u Provider Name:Bibi Adams, 2021-03-04 02:30:00 PM, [address] [facility], , [place], [address], Follow Up:khurram has appt on 03/04, BP f/u Insurance Providers Payer Name Payer Address Payer Phone Insured Name Patient Relati onship to Insured Coverage Start Date Coverage End Date MEDICAID [employer] [address] [facility] [id number] HINDU,MOST self
--- OUTSIDE RECORDS SUMMARY | 2021-05-24 20:31 | CCD ---
Author Author [facility] Syst ems Organization [facility] Syst ems Address Unknown Phone Unavailable Care Team Providers Care Manager Military Name Role Phone Bibi Adams Unavailable PROBLEMS Type Condition ICD9-CM Code [id number] Code Onset Dates Condition S tatus W/U Status Risk SNOMED Code Notes Problem Bilateral carpal tunnel syndrome G56.03 Active conf irmed [id number] Problem Restless leg syndrome G25.81 Active confirmed 00494915 Problem Other chronic pain G89.29 Active confirmed 8 1280141 Problem Type 2 diabetes mellitus wit hout complication, without long-term current use of insulin E11.9 Active confirmed 909599241 Problem Hypertension, unspecified type I10 Active confir med 25383526 ALLERGIES No Known Allergies ENCOUNTERS from 1960 to 2021-03-29 Encounter Location Date Provider Diagnosis [facility] [address] [facility] [phone] [place] [address] 11 Mar, 2021 Bibi Adams IMMUNIZATIONS Vaccine Route Administration Date Status Influenza 18 yrs & older Flublok IM Intramuscular Mar 25, 2021 Administered SOCIAL HISTORY Tobacco Use: Social History Observation [...] you a: never smoker REASON FOR REFERRAL No Information VITAL SIGNS No information MEDICATIONS Medication SIG (Take, Route, Frequency, Duration) Notes Start Da te End Date Status rOPINIRole HCl 0.5 MG 1 tablet 1 to 3 hours before bedtime Orally Once a day for 30 day(s) Feb, Active Adjustable Wrist Brace - as directed wear wrist brace (both wrists) daily (ICD: G56.03) for 30 days Feb, Active Tylenol 325 MG 1 tablet as needed Orally every 6 hrs Active Omeprazole 40 MG 1 capsule 30 minutes before morning meal Orally Once a day for 90 days Active Bisacodyl 5 MG 2 tablet as needed Orally Once a day for 30 days Active Atorvastatin Calcium 10 MG 1 tablet Orally Once a day for 30 day(s) Active metFORMIN HCl 500 MG 1 tablet with a meal Orally Once a day for 90 da ys Active Atenolol 50 MG 1 tablet Orally Once a day bid on [facility] discharge Active Losartan Potassium-HCTZ 100-25 MG 1 tablet Orally Once a day for 30 day(s) Feb, Active Gabapentin 400 MG 1 capsule Orally Three times a day for 3 0 days 400mg on discharge 02/14/21 tid Active Meclizine HCl 25 MG 1 tablet as needed for dizzi ness Orally three times a day for 30 day(s) Jan, Active PROCEDURES No Information RESULTS No Results REASON FOR VISIT Call Back/Pharmacy Informatics Specialist. MEDICAL (GENERAL) HISTORY Type Description Date Medical History Hypertension Medical History Thoracic Compressive Myelopathy Medical History Gerd Medical History Diabetes Surgical History Spinal Surgery 2018 Surgical History eye surgery Hospitalization History Syncope - [facility] 01/22-01/25/21 Hospitalization History HTN Urgency - [facility] 02/12-02/14/21 Goals Section No Information Health Concerns No Information MEDICAL EQUIPMENT No Information MENTAL STATUS No Information FUNCTIONAL STATUS No Information ASSESSMENTS No Information PLAN OF TREATMENT Medication Medication Name Sig Start Date Stop Date Gabapentin 400 MG 1 capsule Orally Three times a day for 30 days rOPINIRole HCl 0.5 MG 1 tablet 1 to 3 hours before bedtime Orally Once a day for 30 day(s) Feb, Adjustable Wrist Brace - as directed wear wrist brace (both wrists) daily (ICD: G56.03) for 30 days Feb, Insurance Providers Payer Name Payer Address Payer Phone Insured Name Patient Relati onship to Insured Coverage Start Date Coverage End Date MEDICAID [employer] [address] [facility] [id number] LATTER-DAY,MOST self
--- OUTSIDE RECORDS SUMMARY | 2021-05-24 20:31 | CCD ---
Author Author [facility] Syst ems Organization [facility] Syst ems Address Unknown Phone Unavailable Care Team Providers Care Loss Prevention Supervisor Name Role Phone Bibi Adams Unavailable PROBLEMS Type Condition ICD9-CM Code DES65-CP Code Onset Dates Condition S tatus W/U Status Risk SNOMED Code Notes Problem Bilateral carpal tunnel syndrome G56.03 Active conf irmed 77297315 Problem Restless leg syndrome G25.81 Active confirmed 32476088 Problem Other chronic pain G89.29 Active confirmed 8 8723695 Problem Type 2 diabetes mellitus wit hout complication, without long-term current use of insulin E11.9 Active confirmed 407160347 Problem Hypertension, unspecified type I10 Active confir med 62488086 ALLERGIES No Known Allergies ENCOUNTERS from 1960 to 2021-03-09 Encounter Location Date Provider Diagnosis [facility] [address] [facility] [phone] [place] [address] Feb, Bibi Adams Restless leg syndrome G25.81 and Bilateral carpal tunnel syndrome G56.03 IMMUNIZATIONS No Information SOCIAL HISTORY Tobacco Use: [...] REASON FOR REFERRAL No Information VITAL SIGNS Weight 123.8 lbs Feb, Weight-kg 56.16 kg Feb, Height 60 in Feb, BMI 24.18 kg/m2 Feb, Heart Rate 59 /min Feb, Respiratory Rate 17 /min Feb, Temperature 96.6 degrees Fahrenheit Feb, Oximetry 97 Feb, Blood pressure systolic 108 mm Hg Feb, Blood pressure diastolic 58 mm Hg Feb, MEDICATIONS Medication SIG (Take, [...] tablet Orally Once a day bid on [facility] discharge Active Losartan Potassium-HCTZ 100-25 MG 1 [...] Information RESULTS No Results REASON FOR VISIT 1 month F/U MEDICAL (GENERAL) HISTORY Type Description Date Medical History Hypertension Medical History Thoracic Compressive Myelopathy Medical History Gerd Medical History Diabetes Surgical History Spinal Surgery 2018 Surgical History eye surgery Hospitalization History Syncope - [facility] 01/22-01/25/21 Hospitalization History HTN Urgency - [facility] 02/12-02/14/21 Goals Section No Information Health Concerns No Information MEDICAL EQUIPMENT No Information MENTAL STATUS No Information FUNCTIONAL STATUS No Information ASSESSMENTS Encounter Date Diagnosis Assessment Notes Treatment Notes Treatm ent Clinical Notes Feb, Restless leg syndrome (ICD-10 - G25.81) Will trial ropinirole to see if it helps with her tingling/pain in the lower extremities bilaterally that occurs at night. The symptoms are likely due to restless leg syndrome. Will continue to monitor at subsequent visits. Feb, Bilateral carpal tunnel syndrome (ICD-10 - G56.0 3) Advised patient to wear wrist brace bilaterally when performing activities throughout the day that elicit pain/numbness/tingling. Also advised her to wear the braces during the night. If no relief with wrist brace use, will consider referral to Ortho. PLAN OF TREATMENT Medication Medication Name Sig Start Date Stop Date Gabapentin 400 MG 1 capsule Orally Three times a day for 30 days rOPINIRole HCl 0.5 MG 1 tablet 1 to 3 hours before bedtime Orally Once a day for 30 day(s) Feb, Adjustable Wrist Brace - as directed wear wrist brace (both wrists) daily (ICD: G56.03) for 30 days Feb, Treatment Notes Assessment Notes Clinical Notes Restless leg syndrome Will trial ropinir ole to see if it helps with her tingling/pain in the lower extremities bilaterally that occurs at night. The symptoms are likely due to restless leg syndrome. Will continue to monitor at subsequent visits. Bilateral carpal tunnel syndrome Advised patient to wear wrist brace bilaterally when performing activities throughout the day that elicit pain/numbness/tingling. Also advised her to wear the braces during the night. If no relief with wrist brace use, will consider referral to Ortho. Next Appt Details prn Reason:as needed Follow Up:prnas needed Insurance Providers Payer Name Payer Address Payer Phone Insured Name Patient Relati onship to Insured Coverage Start Date Coverage End Date MEDICAID [address] [facility] [id number] ALEVISM,MOST self
--- OUTSIDE RECORDS SUMMARY | 2021-05-24 20:31 | CCD ---
Author Author [facility] Syst ems Organization [facility] Syst ems Address Unknown Phone Unavailable Care Team Providers Care Sports Anchor Name Role Phone Bibi Adams Unavailable PROBLEMS Type Condition ICD9-CM Code LPL29-YE Code Onset Dates Condition S tatus W/U Status Risk SNOMED Code Notes Problem Bilateral carpal tunnel syndrome G56.03 Active conf irmed 06405078 Problem Restless leg syndrome G25.81 Active confirmed 07277552 Problem Other chronic pain G89.29 Active confirmed 8 2652449 Problem Type 2 diabetes mellitus wit hout complication, without long-term current use of insulin E11.9 Active confirmed 922357858 Problem Hypertension, unspecified type I10 Active confir med 16154644 ALLERGIES No Known Allergies ENCOUNTERS from 1960 to 2021-03-30 Encounter Location Date Provider Diagnosis [facility] [place] [address] [facility] [phone] [place] [address] Mar, Bibi Adams IMMUNIZATIONS Vaccine Route Administration Date [...] tablet Orally Once a day bid on [facility] discharge Active Losartan Potassium-HCTZ 100-25 MG [...] Information RESULTS No Results REASON FOR VISIT chest pains/Cardiology referral MEDICAL (GENERAL) HISTORY Type Description Date Medical History Hypertension Medical History Thoracic Compressive Myelopathy Medical History Gerd Medical History Diabetes Surgical History Spinal Surgery 2018 Surgical History eye surgery Hospitalization History Syncope - [facility] 01/22-01/25/21 Hospitalization History HTN Urgency - [facility] 02/12-02/14/21 Goals Section No Information Health Concerns [...] Coverage Start Date Coverage End Date MEDICAID [employer] [address] [facility] [id number] CHRISTIAN,MOST self
--- OUTSIDE RECORDS SUMMARY | 2021-05-24 20:31 | CCD ---
Author Author [facility] Syst ems Organization [facility] Syst ems Address Unknown Phone Unavailable Care Team Providers Care Store Manager Name Role Phone Bibi Adams Unavailable PROBLEMS Type Condition ICD9-CM Code AQU03-UB Code Onset Dates Condition S tatus W/U Status Risk SNOMED Code Notes Problem Bilateral carpal tunnel syndrome G56.03 Active conf irmed 14105127 Problem Restless leg syndrome G25.81 Active confirmed 85430142 Problem Other chronic pain G89.29 Active confirmed 8 9654109 Problem Type 2 diabetes mellitus wit hout complication, without long-term current use of insulin E11.9 Active confirmed 937571961 Problem Hypertension, unspecified type I10 Active confir med 57710559 ALLERGIES No Known Allergies ENCOUNTERS from 1960 to 2021-03-07 Encounter Location Date Provider Diagnosis [facility] [address] [place] [address] [place] [address] Feb, Bibi Adams IMMUNIZATIONS No Information SOCIAL HISTORY Tobacco Use: [...] tablet Orally Once a day bid on [facility] discharge Active Losartan Potassium-HCTZ 100-25 [...] Information RESULTS No Results REASON FOR VISIT cardio referral MEDICAL (GENERAL) HISTORY Type Description Date Medical History Hypertension Medical History Thoracic Compressive Myelopathy Medical History Gerd Medical History Diabetes Surgical History Spinal Surgery 2018 Surgical History eye surgery Hospitalization History Syncope - [facility] 01/22-01/25/21 Hospitalization History HTN Urgency - [facility] 02/12-02/14/21 Goals Section No Information Health [...] Coverage Start Date Coverage End Date MEDICAID [employer] [address] [facility] [id number] [employer],MOST self
--- OUTSIDE RECORDS SUMMARY | 2021-05-24 20:31 | CCD ---
Author Author [facility] Syst ems Organization [facility] Syst ems Address Unknown Phone Unavailable Care Team Providers Care Shucker Name Role Phone Bibi Adams Unavailable PROBLEMS Type Condition ICD9-CM Code XGN33-PR Code Onset Dates Condition S tatus W/U Status Risk SNOMED Code Notes Problem Bilateral carpal tunnel syndrome G56.03 Active conf irmed 14746518 Problem Restless leg syndrome G25.81 Active confirmed 76006215 Problem Other chronic pain G89.29 Active confirmed 8 8360371 Problem Type 2 diabetes mellitus wit hout complication, without long-term current use of insulin E11.9 Active confirmed 585930430 Problem Hypertension, unspecified type I10 Active confir med 73072293 ALLERGIES No Known Allergies ENCOUNTERS from 1960 to 2021-03-25 Encounter Location Date Provider Diagnosis [facility] [address] [place] [address] [place] [address] Mar, 2021 Bibi Adams Encounter for immunization Z 23 IMMUNIZATIONS Vaccine Route Administration Date Status Influenza [...] tablet Orally Once a day bid on [facility] discharge Active Losartan Potassium-HCTZ 100-25 MG 1 tablet Orally Once a day for 30 day(s) Feb, Active Gabapentin 400 MG 1 capsule Orally Three times a day for 3 0 days 400mg on discharge 02/14/21 tid Active Meclizine HCl 25 MG 1 tablet as needed for dizzi ness Orally three times a day for 30 day(s) Jan, Active PROCEDURES from 1960 to 2021-03-25 Procedure Date Ordered Result Body Site Imm: Flublok Quadrivalent 18 years & older 0.5mL IM Influenza 07-04-08 N/A RESULTS No Results REASON FOR VISIT flu vaccine MEDICAL (GENERAL) HISTORY Type Description Date Medical History Hypertension Medical History Thoracic Compressive Myelopathy Medical History Gerd Medical History Diabetes Surgical History Spinal Surgery 2018 Surgical History eye surgery Hospitalization History Syncope - [facility] 01/22-01/25/21 Hospitalization History HTN Urgency - [facility] 02/12-02/14/21 Goals Section No Information Health Concerns No Information MEDICAL EQUIPMENT No Information MENTAL STATUS No Information FUNCTIONAL STATUS No Information ASSESSMENTS Encounter Date Diagnosis Assessment Notes Treatment Notes Treatm ent Clinical Notes Mar, Encounter for immunization (ICD-10 - Z23) Patient Educated with: Flu Recombinant [id number] (Flu Recombinant [id number]) PLAN OF TREATMENT Medication Medication Name Sig [...] Feb, Treatment Notes Assessment Notes Clinical Notes Encounter for immunization Patient Educated with: Flu Recombinant [id number] (Flu Recombinant [id number]) Insurance Providers Payer Name Payer Address Payer Phone Insured Name Patient Relati onship to Insured Coverage Start Date Coverage End Date MEDICAID [employer] [address] [facility] [id number] [place],MOST self
--- OUTSIDE RECORDS SUMMARY | 2021-05-24 20:32 | CCD ---
Author Author [facility] Address Unknown Phone Unavailable Support Name Relationship Address Phone UE Next Of Kin Unknown Unavailable MD RONEY Next Of Kin [address] [place], [place] [phone] MD RONEY ECON [address] [place] [address] [phone] Re-disclosure Warning The records that you are about to access may contain information from federally-assisted alcohol or drug abuse programs. If such information is present, then the following federally mandated warning applies: This information has been disclosed to you from records protected by federal confidentiality rules (42 CFR part 2). The federal rules prohibit you from making any further disclosure of this information unless further disclosure is expressly permitted by the written consent of the person to whom it pertains or as otherwise permitted by 42 CFR part 2. A general authorization for the release of medical or other information is NOT sufficient for this purpose. The Federal rules restrict any use of the information to criminally investigate or prosecute any alcohol or drug abuse patient.The records that you are about to access may contain highly sensitive health information, the redisclosure of which is protected by Article 27-F of the [facility] Public Health law. If you continue you may have access to information: Regarding HIV / AIDS; Provided by facilities licensed or operated by the [facility] Office of Mental Health; or Provided by the [facility] Office for People With Developmental Disabilities. If such information is present, then the following [facility] mandated warning applies: This information has been disclosed to you from confidential records which are protected by state law. State law prohibits you from making any further disclosure of this information without the specific written consent of the person to whom it pertains, or as otherwise permitted by law. Any unauthorized further disclosure in violation of state law may result in a fine or nursing home sentence or both. A general authorization for the release of medical or other information is NOT sufficient authorization for further disc losure. Encounters Encounter Providers Location Date Indications Data Source(s ) [place] [address] [address] 03/29/2021 12:00:00 AM EDT eCW1 ([facility]) [place] [address] [address] 03/28/2021 12:00:00 AM EDT eCW1 ([facility]) [place] [address] [address] 03/25/2021 12:00:00 AM EDT eCW1 ([facility]) [place] [address] [address] 03/04/2021 12:00:00 AM EDT eCW1 ([facility]) [place] [address] [address] 03/04/2021 12:00:00 AM EDT eCW1 ([facility]) [place] [address] [facility] [address] 02/23/2021 12:00:00 AM EDT eCW1 ([facility]) [place] [address] [address] 02/17/2021 12:00:00 AM EDT eCW1 ([facility]) [place] [address] [address] 02/14/2021 12:00:00 AM EDT eCW1 ([facility]) [place] [address] [facility] [address] 01/28/2021 12:00:00 AM EDT eCW1 ([facility]) [place] [address] [facility] [address] 01/28/2021 12:00:00 AM EDT eCW1 ([facility]) [place] [address] [facility] [address] 01/21/2021 12:00:00 AM EDT eCW1 ([facility]) [place] [address] [address] 01/04/2021 12:00:00 AM EDT eCW1 ([facility]) [place] [address] [address] 01/03/2021 12:00:00 AM EDT eCW1 ([facility]) [place] [address] [address] 01/01/2021 12:00:00 AM EDT eCW1 ([facility]) [place] [address] [facility] [address] 12/17/2020 12:00:00 AM EDT eCW1 ([facility]) Immunizations Vaccine Date Status Description Data Source(s) influenza, recombinant, quadrIvalent,injectable, prese rvative free 03/25/2021 03:05:00 PM EDT completed eCW1 ([facility]) influenza, recombinant, quadrIvalent,injectable, prese rvative free 03/25/2021 03:05:00 PM EDT completed eCW1 ([facility]) influenza, recombinant, quadrIvalent,injectable, prese rvative free 03/25/2021 03:05:00 PM EDT completed eCW1 ([facility]) COVID-19 VACCINE Pfizer 02/25/2021 12:00:00 AM EDT completed [facility] Vaccine Series Complete: YESThis Data wa s Submitted to [facility] [employer]. COVID-19 VACC, MRNA(PFIZER)/PF 02/25/2021 12:00:00 AM EDT completed [facility] COVID-19 VACCINE Pfizer 02/04/2021 12:00:00 AM EDT completed [facility] Vaccine Series Complete: NOThis Data was Submitted to [facility] [employer]. COVID-19 VACC, MRNA(PFIZER)/PF 02/04/2021 12:00:00 AM EDT completed [facility] Medications Medication Brand Name Start Date Product Form Dose Route Admi nistrative Instructions Pharmacy Instructions Status Indications Reaction Description Data Source(s) Adjustable Wrist Brace - Adjustable Wrist Brace - 03/04/2021 12:00: 00 AM EDT active Adjustable Wrist Brace - eCW1 ([facility]) ropinirole 0.5 MG Oral Tablet rOPINIRole HCl 0.5 MG rOPINIRo le HCl 0.5 MG 03/04/2021 12:00:00 AM EDT active rOPINIRole HCl 0.5 MG eCW1 ([facility]) ropinirole 0.5 MG Oral Tablet rOPINIRole HCl 0.5 MG rOPINIRo le HCl 0.5 MG 03/04/2021 12:00:00 AM EDT active rOPINIRole HCl 0.5 MG eCW1 ([facility]) Adjustable Wrist Brace - Adjustable Wrist Brace - 03/04/2021 12:00: 00 AM EDT active Adjustable Wrist Brace - eCW1 ([facility]) Adjustable Wrist Brace - Adjustable Wrist Brace - 03/04/2021 12:00: 00 AM EDT active Adjustable Wrist Brace - eCW1 ([facility]) ropinirole 0.5 MG Oral Tablet rOPINIRole HCl 0.5 MG rOPINIRo le HCl 0.5 MG 03/04/2021 12:00:00 AM EDT active rOPINIRole HCl 0.5 MG eCW1 ([facility]) ropinirole 0.5 MG Oral Tablet rOPINIRole HCl 0.5 MG rOPINIRo le HCl 0.5 MG 03/04/2021 12:00:00 AM EDT active rOPINIRole HCl 0.5 MG eCW1 ([facility]) Adjustable Wrist Brace - Adjustable Wrist Brace - 03/04/2021 12:00: 00 AM EDT active Adjustable Wrist Brace - eCW1 ([facility]) Adjustable Wrist Brace - Adjustable Wrist Brace - 03/04/2021 12:00: 00 AM EDT active Adjustable Wrist Brace - eCW1 ([facility]) ropinirole 0.5 MG Oral Tablet rOPINIRole HCl 0.5 MG rOPINIRo le HCl 0.5 MG 03/04/2021 12:00:00 AM EDT active rOPINIRole HCl 0.5 MG eCW1 ([facility]) Hydrochlorothiazide 25 MG / Losartan Pot assium 100 MG Oral Tablet Losartan Potassium-HCTZ 100-25 MG Losartan Potassium-HCTZ 100-25 MG 02/23/2021 12:00:00 AM EDT 1.0 {tablet} active Losartan Po tassium-HCTZ 100-25 MG eCW1 ([facility]) Hydrochlorothiazide 25 MG / Losartan Pot assium 100 MG Oral Tablet Losartan Potassium-HCTZ 100-25 MG Losartan Potassium-HCTZ 100-25 MG 02/23/2021 12:00:00 AM EDT 1.0 {tablet} active Losartan Po tassium-HCTZ 100-25 MG eCW1 ([facility]) Hydrochlorothiazide 25 MG / Losartan Pot assium 100 MG Oral Tablet Losartan Potassium-HCTZ 100-25 MG Losartan Potassium-HCTZ 100-25 MG 02/23/2021 12:00:00 AM EDT 1.0 {tablet} active Losartan Po tassium-HCTZ 100-25 MG eCW1 ([facility]) Hydrochlorothiazide 25 MG / Losartan Pot assium 100 MG Oral Tablet Losartan Potassium-HCTZ 100-25 MG Losartan Potassium-HCTZ 100-25 MG 02/23/2021 12:00:00 AM EDT 1.0 {tablet} active Losartan Po tassium-HCTZ 100-25 MG eCW1 ([facility]) Hydrochlorothiazide 25 MG / Losartan Pot assium 100 MG Oral Tablet Losartan Potassium-HCTZ 100-25 MG Losartan Potassium-HCTZ 100-25 MG 02/23/2021 12:00:00 AM EDT 1.0 {tablet} active Losartan Po tassium-HCTZ 100-25 MG eCW1 ([facility]) Hydrochlorothiazide 25 MG / Losartan Pot assium 100 MG Oral Tablet Losartan Potassium-HCTZ 100-25 MG Losartan Potassium-HCTZ 100-25 MG 02/23/2021 12:00:00 AM EDT 1.0 {tablet} active Losartan Po tassium-HCTZ 100-25 MG eCW1 ([facility]) Meclizine Hydrochloride 25 MG Oral Tablet Meclizine HC l 25 MG Meclizine HCl 25 MG 01/28/2021 12:00:00 AM EDT active Meclizine HCl 25 MG eCW1 ([facility]) Meclizine Hydrochloride 25 MG Oral Tablet Meclizine HC l 25 MG Meclizine HCl 25 MG 01/28/2021 12:00:00 AM EDT active Meclizine HCl 25 MG eCW1 ([facility]) Meclizine Hydrochloride 25 MG Oral Tablet Meclizine HC l 25 MG Meclizine HCl 25 MG 01/28/2021 12:00:00 AM EDT active Meclizine HCl 25 MG eCW1 ([facility]) Meclizine Hydrochloride 25 MG Oral Tablet Meclizine HC l 25 MG Meclizine HCl 25 MG 01/28/2021 12:00:00 AM EDT active Meclizine HCl 25 MG eCW1 ([facility]) Meclizine Hydrochloride 25 MG Oral Tablet Meclizine HC l 25 MG Meclizine HCl 25 MG 01/28/2021 12:00:00 AM EDT active Meclizine HCl 25 MG eCW1 ([facility]) Meclizine Hydrochloride 25 MG Oral Tablet Meclizine HC l 25 MG Meclizine HCl 25 MG 01/28/2021 12:00:00 AM EDT active Meclizine HCl 25 MG eCW1 ([facility]) Meclizine Hydrochloride 25 MG Oral Tablet Meclizine HC l 25 MG Meclizine HCl 25 MG 01/28/2021 12:00:00 AM EDT active Meclizine HCl 25 MG eCW1 ([facility]) Meclizine Hydrochloride 25 MG Oral Tablet Meclizine HC l 25 MG Meclizine HCl 25 MG 01/28/2021 12:00:00 AM EDT active Meclizine HCl 25 MG eCW1 ([facility]) Meclizine Hydrochloride 25 MG Oral Tablet Meclizine HC l 25 MG Meclizine HCl 25 MG 01/28/2021 12:00:00 AM EDT active Meclizine HCl 25 MG eCW1 ([facility]) Meclizine Hydrochloride 25 MG Oral Tablet Meclizine HC l 25 MG Meclizine HCl 25 MG 01/28/2021 12:00:00 AM EDT active Meclizine HCl 25 MG eCW1 ([facility]) Hydrochlorothiazide 12.5 MG / Losartan P otassium 50 MG Oral Tablet Losartan Potassium-HCTZ 50-12.5 MG Losartan Potassium-HCTZ 50-12.5 MG 12/17/2020 12:00:00 AM EDT 1.0 {tablet} active Losartan Po tassium-HCTZ 50-12.5 MG eCW1 ([facility]) Hydrochlorothiazide 12.5 MG / Losartan P otassium 50 MG Oral Tablet Losartan Potassium-HCTZ 50-12.5 MG Losartan Potassium-HCTZ 50-12.5 MG 12/17/2020 12:00:00 AM EDT 1.0 {tablet} active Losartan Po tassium-HCTZ 50-12.5 MG eCW1 ([facility]) Hydrochlorothiazide 12.5 MG / Losartan P otassium 50 MG Oral Tablet Losartan Potassium-HCTZ 50-12.5 MG Losartan Potassium-HCTZ 50-12.5 MG 12/17/2020 12:00:00 AM EDT 1.0 {tablet} active Losartan Po tassium-HCTZ 50-12.5 MG eCW1 ([facility]) Hydrochlorothiazide 12.5 MG / Losartan P otassium 50 MG Oral Tablet Losartan Potassium-HCTZ 50-12.5 MG Losartan Potassium-HCTZ 50-12.5 MG 12/17/2020 12:00:00 AM EDT 1.0 {tablet} active Losartan Po tassium-HCTZ 50-12.5 MG eCW1 ([facility]) Hydrochlorothiazide 12.5 MG / Losartan P otassium 50 MG Oral Tablet Losartan Potassium-HCTZ 50-12.5 MG Losartan Potassium-HCTZ 50-12.5 MG 12/17/2020 12:00:00 AM EDT 1.0 {tablet} active Losartan Po tassium-HCTZ 50-12.5 MG eCW1 ([facility]) Hydrochlorothiazide 12.5 MG / Losartan P otassium 50 MG Oral Tablet Losartan Potassium-HCTZ 50-12.5 MG Losartan Potassium-HCTZ 50-12.5 MG 12/17/2020 12:00:00 AM EDT 1.0 {tablet} active Losartan Po tassium-HCTZ 50-12.5 MG eCW1 ([facility]) Hydrochlorothiazide 12.5 MG / Losartan P otassium 50 MG Oral Tablet Losartan Potassium-HCTZ 50-12.5 MG Losartan Potassium-HCTZ 50-12.5 MG 12/17/2020 12:00:00 AM EDT 1.0 {tablet} active Losartan Po tassium-HCTZ 50-12.5 MG eCW1 ([facility]) Hydrochlorothiazide 12.5 MG / Losartan P otassium 50 MG Oral Tablet Losartan Potassium-HCTZ 50-12.5 MG Losartan Potassium-HCTZ 50-12.5 MG 12/17/2020 12:00:00 AM EDT 1.0 {tablet} active Losartan Po tassium-HCTZ 50-12.5 MG eCW1 ([facility]) Hydrochlorothiazide 12.5 MG / Losartan P otassium 50 MG Oral Tablet Losartan Potassium-HCTZ 50-12.5 MG Losartan Potassium-HCTZ 50-12.5 MG 12/17/2020 12:00:00 AM EDT 1.0 {tablet} active Losartan Po tassium-HCTZ 50-12.5 MG eCW1 ([facility]) Insurance Providers Payer name Policy type / Coverage type Policy ID Covered constitution party ID Covered constitution party's relationship to flower Policy Flower Plan Information [facility] MEDICAID [id number] SP [id number] SELF PAY ONLY [id number] SP [id number] Problems, Conditions, and Diagnoses Code Display Name Description Problem Type Effective Dates Data Source(s) G25.81 [id number] Restless leg syndrome Problem 03/04/2021 12: 00:00 AM EDT eCW1 ([facility]) G56.03 [id number] Bilateral carpal tunnel syndrome Problem 03/04/2021 12:00:00 AM EDT eCW1 ([facility]) I10 [id number] Hypertension, unspecified type Problem 12/17 12:00:00 AM EDT eCW1 ([facility]) E11.9 [id number] Type 2 diabetes joe itus without complication, without long-term current use of insulin Problem 12/17/2020 12:00:00 AM EDT eCW1 ([facility]) G89.29 [id number] Other chronic pain Problem 12/17/2020 12:00: 00 AM EDT eCW1 ([facility]) Surgeries/Procedures Procedure Description Date Indications Data Source(s) Imm: Flublok Quadrivalent 18 years & older 0.5mL IM Influenz a 03/25/2021 12:00:00 AM EDT eCW1 ([facility]) Results ID Date Data Source [id number] 02/14/2021 12:06:00 AM EDT [facility] Name Value Range Interpretation Code Description Data Mer rce(s) Supporting Document(s) SARS coronavirus 2 RNA [Presence] in Res piratory specimen by SARITA with probe detection NEGATIVE [facility] This lab was ordered by [facility] a nd reported by [facility]. ID Date Data Source [id number] 01/23/2021 02:46:00 AM EDT [facility] Name Value Range Interpretation Code Description Data Mer rce(s) Supporting Document(s) SARS coronavirus 2 RNA [Presence] in Res piratory specimen by SARITA with probe detection NEGATIVE [facility] This lab was ordered by [facility] a nd reported by [facility]. ID Date Data Source LIPID PANEL (CARDIAC RISK) 12/18/2020 12:00:00 AM EDT eCW1 ( [facility]) Name Value Range Interpretation Code Description Data Mer rce(s) Supporting Document(s) Cholesterol [Moles/volume] in Serum or Plasma 180 <200 CHOLESTEROL LEVEL eCW1 ([facility]) Triglyceride [Mass/volume] in Serum or Plasma by calculation 122 <150 TRIGLYCERIDES LEVEL eCW1 ([facility]) Cholesterol in LDL [Mass/volume] in Serum or Plasma by calculation 116 <100 LDL CHOLESTEROL eCW1 ([facility]) Cholesterol in HDL [Moles/volume] in Serum or Plasma 40 >40 HDL CHOLESTEROL eCW1 ([facility]) 140 NON-HDL-C eCW1 ([facility]) 4.500 <5 CHOLESTEROL RISK RATIO eCW1 ([facility]) ID Date Data Source [id number] 12/18/2020 12:00:00 AM EDT eCW1 ([facility]) Name Value Range Interpretation Code Description Data Mer rce(s) Supporting Document(s) Hemoglobin A1c/Hemoglobin.total in Blood 5.7 HEMOGLOBIN A1c eCW1 ([facility]) ID Date Data Source FREE T4 & TSH PANEL 12/18/2020 12:00:00 AM EDT eCW1 ([facility]) Name Value Range Interpretation Code Description Data Mer rce(s) Supporting Document(s) 0.854 0.358-3.740 THYROID STIMULATING HORM ONE eCW1 ([facility]) 0.98 0.76-1.46 FREE T4 eCW1 ([facility]) ID Date Data Source Comprehensive Metabolic Profile (CMP) 12/18/2020 12:00:00 AM EDT eCW1 ([facility]) Name Value Range Interpretation Code Description Data Mer rce(s) Supporting Document(s) 14 7-18 BLOOD UREA NITROGEN eCW1 ([facility]) 110 70-100 GLUCOSE, FASTING eCW1 ([facility]) 0.65 0.55-1.30 CREATININE FOR GFR eCW1 ([facility]) > 60.0 >45 GLOMERULAR FILTRATION RATE eCW 1 ([facility]) 140 136-145 SODIUM LEVEL eCW1 ([facility]) 30 21-32 CARBON DIOXIDE LEVEL eCW1 ([facility]) 106 98-107 CHLORIDE LEVEL eCW1 ([facility]) 3.6 3.5-5.1 POTASSIUM SERUM eCW1 ([facility]) 27 12-78 ALT/SGPT eCW1 ([facility]) 20 7-37 AST/SGOT eCW1 ([facility]) 8.7 8.8-10.2 CALCIUM LEVEL eCW1 ([facility]) 0.4 0.2-1.0 BILIRUBIN,TOTAL eCW1 ([facility]) 7.0 6.4-8.2 TOTAL PROTEIN eCW1 ([facility]) 73 45-117 ALKALINE PHOSPHATASE eCW1 ([facility]) 3.7 3.2-5.2 ALBUMIN eCW1 ([facility]) 1.1 1.2-2.2 ALBUMIN/GLOBULIN RATIO eCW1 ([facility]) ID Date Data Source CBC with Differential 12/18/2020 12:00:00 AM EDT eCW1 ([facility]) Name Value Range Interpretation Code Description Data Mer rce(s) Supporting Document(s) 6.4 4.0-10.0 WHITE BLOOD COUNT eCW1 ([facility]) 12.4 12.0-15.5 HEMOGLOBIN eCW1 ([facility]) 4.31 4.00-5.40 RED BLOOD COUNT eCW1 ([facility]) 28.8 27.0-33.0 MEAN CORPUSCULAR HEMOGLOB IN eCW1 ([facility]) 88.9 80.0-96.0 MEAN CORPUSCULAR VOLUME e CW1 ([facility]) 38.3 36.0-47.0 HEMATOCRIT eCW1 ([facility]) 12.8 11.5-14.5 RED CELL DISTRIBUTION WID TH eCW1 ([facility]) 32.4 32.0-36.5 MEAN CORPUSCULAR HGB CONC eCW1 ([facility]) 189 150-450 PLATELET COUNT, AUTOMATED eCW1 ([facility]) 43.5 24.0-44.0 LYMPH % eCW1 ([facility]) 5.6 2.0-8.0 MONO % eCW1 ([facility]) 48.9 36.0-66.0 NEUTROPHILS % eCW1 ([facility]) 0.6 0.0-1.0 BASO % eCW1 ([facility]) 3.1 1.5-8.5 NEUTROPHILS # eCW1 ([facility]) 1.2 0.0-3.0 EOS % eCW1 ([facility]) 2.8 1.5-5.0 LYMPH # eCW1 ([facility]) 0.1 0.0-0.5 EOS # eCW1 ([facility]) 0.4 0.0-0.8 MONO # eCW1 ([facility]) 0.0 0.0-0.2 BASO # eCW1 ([facility]) Procedure Social History Code Duration Value Status Description Data Source(s ) Smoking 03/04/2021 12:00:00 AM EDT Never Smoker completed Never S moker eCW1 ([facility]) Smoking 03/04/2021 12:00:00 AM EDT Never Smoker completed Never S moker eCW1 ([facility]) Smoking 03/04/2021 12:00:00 AM EDT Never Smoker completed Never S moker eCW1 ([facility]) Smoking 03/04/2021 12:00:00 AM EDT Never Smoker completed Never S moker eCW1 ([facility]) Smoking 03/04/2021 12:00:00 AM EDT Never Smoker completed Never S moker eCW1 ([facility]) Smoking 02/23/2021 12:00:00 AM EDT Never Smoker completed Never S moker eCW1 ([facility]) Smoking 01/28/2021 12:00:00 AM EDT Never Smoker completed Never S moker eCW1 ([facility]) Smoking 01/28/2021 12:00:00 AM EDT Never Smoker completed Never S moker eCW1 ([facility]) Smoking 01/28/2021 12:00:00 AM EDT Never Smoker completed Never S moker eCW1 ([facility]) Smoking 01/28/2021 12:00:00 AM EDT Never Smoker completed Never S moker eCW1 ([facility]) Smoking 12/17/2020 12:00:00 AM EDT Never Smoker completed Never S moker eCW1 ([facility]) Smoking 12/17/2020 12:00:00 AM EDT Never Smoker completed Never S moker eCW1 ([facility]) Smoking 12/17/2020 12:00:00 AM EDT Never Smoker completed Never S moker eCW1 ([facility]) Smoking 12/17/2020 12:00:00 AM EDT Never Smoker completed Never S moker eCW1 ([facility]) Smoking 12/17/2020 12:00:00 AM EDT Never Smoker completed Never S moker eCW1 ([facility]) Vital Signs ID Date Data Source UNK Name Value Range Interpretation Code Description Data Source(s) Body weight 123.8 [lb_av] 123.8 [lb_av] eCW1 ([facility]) Body weight 56.16 kg 56.16 kg eCW1 ([facility]) Body height 60 [in_i] 60 [in_i] eCW1 ([facility]) Body mass index (BMI) [Ratio] 24.18 kg/m2 24.18 kg/m2 eCW1 ([facility]) Heart rate 59 /min 59 /min eCW1 ([facility]) Respiratory rate 17 /min 17 /min eCW1 [facility] Body temperature 96.6 [degF] 96.6 [degF] eCW1 ( [facility]) Systolic blood pressure 108 mm[Hg] 108 mm[Hg] e CW1 ([facility]) Diastolic blood pressure 58 mm[Hg] 58 mm[Hg] eCW1 ([facility]) Body weight 123 [lb_av] 123 [lb_av] eCW1 ([facility]) Body weight 55.79 kg 55.79 kg eCW1 ([facility]) Body height 60 [in_i] 60 [in_i] eCW1 ([facility]) Body mass index (BMI) [Ratio] 24.02 kg/m2 24.02 kg/m2 eCW1 ([facility]) Heart rate 52 /min 52 /min eCW1 ([facility]) Respiratory rate 18 /min 18 /min eCW1 [facility] Body temperature 96.8 [degF] 96.8 [degF] eCW1 ( [facility]) Systolic blood pressure 173 mm[Hg] 173 mm[Hg] e CW1 ([facility]) Diastolic blood pressure 74 mm[Hg] 74 mm[Hg] eCW1 ([facility]) Body weight 119.6 [lb_av] 119.6 [lb_av] eCW1 ([facility]) Body weight 54.25 kg 54.25 kg eCW1 ([facility]) Body height 60 [in_i] 60 [in_i] eCW1 ([facility]) Body mass index (BMI) [Ratio] 23.36 kg/m2 23.36 kg/m2 eCW1 ([facility]) Heart rate 57 /min 57 /min eCW1 ([facility]) Respiratory rate 17 /min 17 /min eCW1 [facility] Body temperature 96.8 [degF] 96.8 [degF] eCW1 ( [facility]) Systolic blood pressure 128 mm[Hg] 128 mm[Hg] e CW1 ([facility]) Diastolic blood pressure 59 mm[Hg] 59 mm[Hg] eCW1 ([facility]) Body weight 120.4 [lb_av] 120.4 [lb_av] eCW1 ([facility]) Body height 60 [in_i] 60 [in_i] eCW1 ([facility]) Body mass index (BMI) [Ratio] 23.51 kg/m2 23.51 kg/m2 eCW1 ([facility]) Heart rate 52 /min 52 /min eCW1 ([facility]) Respiratory rate 17 /min 17 /min eCW1 ([facility] Body temperature 98.1 [degF] 98.1 [degF] eCW1 ( [facility]) Systolic blood pressure 170 mm[Hg] 170 mm[Hg] e CW1 ([facility]) Diastolic blood pressure 79 mm[Hg] 79 mm[Hg] eCW1 ([facility]) Patient Treatment Plan of Care Planned Activity Planned Date Details Description Data Source (s) Adjustable Wrist Brace - 03/04/2021 12:00:00 AM EDT eCW1 ([facility]) ropinirole 0.5 MG Oral Tablet 03/04/2021 12:00:00 AM EDT eCW1 ([facility]) Adjustable Wrist Brace - 03/04/2021 12:00:00 AM EDT eCW1 ([facility]) ropinirole 0.5 MG Oral Tablet 03/04/2021 12:00:00 AM EDT eCW1 ([facility]) Adjustable Wrist Brace - 03/04/2021 12:00:00 AM EDT eCW1 ([facility]) ropinirole 0.5 MG Oral Tablet 03/04/2021 12:00:00 AM EDT eCW1 ([facility]) Adjustable Wrist Brace - 03/04/2021 12:00:00 AM EDT eCW1 ([facility]) ropinirole 0.5 MG Oral Tablet 03/04/2021 12:00:00 AM EDT eCW1 ([facility]) Adjustable Wrist Brace - 03/04/2021 12:00:00 AM EDT eCW1 ([facility]) ropinirole 0.5 MG Oral Tablet 03/04/2021 12:00:00 AM EDT eCW1 ([facility]) Hydrochlorothiazide 25 MG / Losartan Potassium 100 MG Oral Tablet 02/23/2021 12:00:00 AM EDT eCW1 ([facility]) Meclizine Hydrochloride 25 MG Oral Tablet 01/28/2021 12:00:00 AM ED T eCW1 ([facility]) Meclizine Hydrochloride 25 MG Oral Tablet 01/28/2021 12:00:00 AM ED T eCW1 ([facility]) Hydrochlorothiazide 12.5 MG / Losartan Potassium 50 MG Oral Tablet 12/17/2020 12:00:00 AM EDT eCW1 ([facility]) Hydrochlorothiazide 12.5 MG / Losartan Potassium 50 MG Oral Tablet 12/17/2020 12:00:00 AM EDT eCW1 ([facility]) Hydrochlorothiazide 12.5 MG / Losartan Potassium 50 MG Oral Tablet 12/17/2020 12:00:00 AM EDT eCW1 ([facility] [facility] Hydrochlorothiazide 12.5 MG / Losartan Potassium 50 MG Oral Tablet 12/17/2020 12:00:00 AM EDT [email or web address] ([facility]) Hydrochlorothiazide 12.5 MG / Losartan Potassium 50 MG Oral Tablet 12/17/2020 12:00:00 AM EDT [email or web address] ([facility])
[2021-05-24 21:05] LABS: BASO # 0.1 10^3/uL (0.0-0.2); BASO % 0.6 % (0.0-1.0); EOS # 0.1 10^3/uL (0.0-0.5); EOS % 1.2 % (0.0-3.0); HEMATOCRIT 33.1 % (36.0-47.0); HEMOGLOBIN 10.7 g/dl (12.0-15.5); LYMPH # 4.4 10^3/uL (1.5-5.0); LYMPH % 52.3 % (24.0-44.0); MEAN CORPUSCULAR HEMOGLOBIN 29.6 pg (27.0-33.0); MEAN CORPUSCULAR HGB CONC 32.3 g/dl (32.0-36.5); MEAN CORPUSCULAR VOLUME 91.4 fl (80.0-96.0); MONO # 0.5 10^3/uL (0.0-0.8); MONO % 5.5 % (2.0-8.0); NEUTROPHILS # 3.3 10^3/uL (1.5-8.5); PLATELET COUNT, AUTOMATED 187 10^3/uL (150-450); RED BLOOD COUNT 3.62 10^6/uL (4.00-5.40); WHITE BLOOD COUNT 8.3 10^3/uL (4.0-10.0)
[2021-05-24 21:20] LABS: INR 1.08; PROTHROMBIN TIME 14.5 SECONDS (12.7-14.5)
[2021-05-24 21:38] LABS: ALBUMIN 2.7 GM/DL (3.2-5.2); ALT/SGPT 33 U/L (12-78); BILIRUBIN,DIRECT < 0.1 MG/DL (0.0-0.2); BILIRUBIN,TOTAL 0.2 MG/DL (0.2-1.0); BLOOD UREA NITROGEN 15 MG/DL (7-18); CALCIUM LEVEL 7.3 MG/DL (8.8-10.2); CARBON DIOXIDE LEVEL 25 MEQ/L (21-32); CHLORIDE LEVEL 115 MEQ/L (98-107); CREATININE FOR GFR 0.91 MG/DL (0.55-1.30); GLOMERULAR FILTRATION RATE > 60.0 (>45); GLUCOSE, FASTING 99 MG/DL (70-100); LIPASE 160 U/L (73-393); POTASSIUM SERUM 3.5 MEQ/L (3.5-5.1); SODIUM LEVEL 147 MEQ/L (136-145); TOTAL PROTEIN 5.5 GM/DL (6.4-8.2)
[2021-05-24 21:39] LABS: MB/CK RELATIVE INDEX 1.35 (< OR =4)
--- OUTSIDE RECORDS SUMMARY | 2021-05-24 21:39 | CCD ---
Author Author [facility] Organization [facility] Address Unknown Phone Unavailable Care Team Providers Care Golf Ball Winder Name Role Phone Burgos, M Christopher PA-C Unavailable Unavailable Burgos, M Christopher PA-C Unavailable Unavailable Burgos, M Christopher PA-C Unavailable Unavailable Burgos, M Christopher PA-C Unavailable Unavailable Burgos, M Christopher PA-C Unavailable Unavailable Burgos, M Christopher PA-C Unavailable Unavailable Burgos, M Christopher PA-C Unavailable Unavailable Burgos, M Christopher PA-C Unavailable Unavailable Burgos, M Christopher PA-C Unavailable Unavailable Burgos, M Christopher PA-C Unavailable Unavailable Burgos, M Christopher PA-C Unavailable Unavailable Burgos, M Christopher PA-C Unavailable Unavailable Burgos, M Christopher PA-C Unavailable Unavailable Burgos, M Christopher PA-C Unavailable Unavailable Burgos, M Christopher PA-C Unavailable Unavailable Burgos, M Christopher PA-C Unavailable Unavailable Burgos, M Christopher PA-C Unavailable Unavailable Burgos, M Christopher PA-C Unavailable Unavailable Burgos, M Christopher PA-C Unavailable Unavailable Burgos, M Christopher PA-C Unavailable Unavailable Burgos, M Christopher PA-C Unavailable Unavailable Burgos, M Christopher PA-C Unavailable Unavailable Burgos, M Christopher PA-C Unavailable Unavailable Burgos, M Christopher PA-C Unavailable Unavailable Burgos, M Christopher PA-C Unavailable Unavailable Burgos, M Christopher PA-C Unavailable Unavailable Re-disclosure Warning The records that you are [...] is protected by Article 27-F of the [facility] Public Health law. If you continue you may have access to information: Regarding HIV / AIDS; Provided by facilities licensed or operated by the [facility] Office of Mental Health; or Provided by the [facility] Office for People With Developmental Disabilities. If such information is present, then the following [facility] mandated warning applies: This information has been [...] law may result in a fine or half-way sentence or both. A general authorization for the release of medical or other information is NOT sufficient authorization for further disc losure. Encounters Encounter Providers Location Date Indications Data Source(s ) Outpatient Attender: Chandler Burgos PA-C 05/24/2021 07:38:18 PM EST - 05/24/2021 08:40:47 PM EST [facility] ([facility]) Unknown [address] [facility] [place] [address] 03/29/2021 12:00:00 AM EDT eCW1 ([facility]) Unknown [address] [facility] [place] [address] 03/28/2021 12:00:00 AM EDT eCW1 ([facility]) Outpatient [address] [facility] [place] [address] 03/25/2021 12:00:00 AM EDT eCW1 ([facility]) Outpatient [address] [facility] [address] 03/04/2021 12:00:00 AM EDT eCW1 ([facility]) Unknown [address] [facility] [address] 03/04/2021 12:00:00 AM EDT eCW1 ([facility]) Outpatient [address] [facility] [address] 02/23/2021 12:00:00 AM EDT eCW1 ([facility]) Unknown [address] [facility] [address] 02/17/2021 12:00:00 AM EDT eCW1 ([facility]) Unknown [address] [facility] [address] 02/14/2021 12:00:00 AM EDT eCW1 ([facility]) Outpatient [address] [facility] [address] 01/28/2021 12:00:00 AM EDT eCW1 ([facility]) Unknown [address] [facility] [address] 01/28/2021 12:00:00 AM EDT eCW1 ([facility]) Unknown [address] [facility] [address] 01/21/2021 12:00:00 AM EDT eCW1 ([facility]) Unknown [address] [facility] [address] 01/04/2021 12:00:00 AM EDT eCW1 ([facility]) Unknown [address] [facility] [address] 01/03/2021 12:00:00 AM EDT eCW1 ([facility]) Unknown [address] [facility] [address] 01/01/2021 12:00:00 AM EDT eCW1 ([facility]) Outpatient [address] [facility] [address] 12/17/2020 12:00:00 AM EDT eCW1 ([facility]) Immunizations Vaccine Date Status Description Data Source(s) influenza, recombinant, quadrIvalent,injectable, prese rvative free 03/25/2021 03:05:00 PM EDT completed eCW1 ([facility]) influenza, recombinant, quadrIvalent,injectable, prese rvative free 03/25/2021 03:05:00 PM EDT completed eCW1 ([facility]) influenza, recombinant, quadrIvalent,injectable, prese rvative free 03/25/2021 03:05:00 PM EDT completed eCW1 ([facility]) COVID-19 VACCINE Pfizer 02/25/2021 12:00:00 AM EDT completed [facility] Vaccine Series Complete: YESThis Data wa s Submitted to [facility] Via [employer]. COVID-19 VACC, MRNA(PFIZER)/PF 02/25/2021 12:00:00 AM EDT completed [facility] COVID-19 VACCINE Pfizer 02/04/2021 12:00:00 AM EDT completed [facility] Vaccine Series Complete: NOThis Data was Submitted to [facility] Via [employer]. COVID-19 VACC, MRNA(PFIZER)/PF 02/04/2021 12:00:00 AM EDT completed [facility] Medications Medication Brand Name Start Date Product Form Dose Route Admi nistrative Instructions Pharmacy Instructions Status Indications Reaction Description Data Source(s) Adjustable Wrist Brace - Adjustable Wrist Brace - 03/04/2021 12:00: 00 AM EDT active Adjustable Wrist Brace - eCW1 ([facility]) ropinirole 0.5 MG Oral Tablet rOPINIRole HCl 0.5 MG rOPINIRo le HCl 0.5 MG 03/04/2021 12:00:00 AM EDT active rOPINIRole HCl 0.5 MG eCW1 ([facility]) ropinirole 0.5 MG Oral Tablet rOPINIRole HCl 0.5 MG rOPINIRo le HCl 0.5 MG 03/04/2021 12:00:00 AM EDT active rOPINIRole HCl 0.5 MG eCW1 ([facility]) Adjustable Wrist Brace - Adjustable Wrist Brace - 03/04/2021 12:00: 00 AM EDT active Adjustable Wrist Brace - eCW1 ([facility]) Adjustable Wrist Brace - Adjustable Wrist Brace - 03/04/2021 12:00: 00 AM EDT active Adjustable Wrist Brace - eCW1 ([facility]) ropinirole 0.5 MG Oral Tablet rOPINIRole HCl 0.5 MG rOPINIRo le HCl 0.5 MG 03/04/2021 12:00:00 AM EDT active rOPINIRole HCl 0.5 MG eCW1 ([facility]) ropinirole 0.5 MG Oral Tablet rOPINIRole HCl 0.5 MG rOPINIRo le HCl 0.5 MG 03/04/2021 12:00:00 AM EDT active rOPINIRole HCl 0.5 MG eCW1 ([facility]) Adjustable Wrist Brace - Adjustable Wrist Brace - 03/04/2021 12:00: 00 AM EDT active Adjustable Wrist Brace - eCW1 ([facility]) Adjustable Wrist Brace - Adjustable Wrist Brace - 03/04/2021 12:00: 00 AM EDT active Adjustable Wrist Brace - eCW1 ([facility]) ropinirole 0.5 MG Oral Tablet rOPINIRole HCl 0.5 MG rOPINIRo le HCl 0.5 MG 03/04/2021 12:00:00 AM EDT active rOPINIRole HCl 0.5 MG eCW1 ([facility]) Hydrochlorothiazide 25 MG / Losartan Pot assium 100 MG Oral Tablet Losartan Potassium-HCTZ 100-25 MG Losartan Potassium-HCTZ 100-25 MG 02/23/2021 12:00:00 AM EDT 1.0 {tablet} active Losartan Po tassium-HCTZ 100-25 MG eCW1 ([facility]) Hydrochlorothiazide 25 MG / Losartan Pot assium 100 MG Oral Tablet Losartan Potassium-HCTZ 100-25 MG Losartan Potassium-HCTZ 100-25 MG 02/23/2021 12:00:00 AM EDT 1.0 {tablet} active Losartan Po tassium-HCTZ 100-25 MG eCW1 ([facility]) Hydrochlorothiazide 25 MG / Losartan Pot assium 100 MG Oral Tablet Losartan Potassium-HCTZ 100-25 MG Losartan Potassium-HCTZ 100-25 MG 02/23/2021 12:00:00 AM EDT 1.0 {tablet} active Losartan Po tassium-HCTZ 100-25 MG eCW1 ([facility]) Hydrochlorothiazide 25 MG / Losartan Pot assium 100 MG Oral Tablet Losartan Potassium-HCTZ 100-25 MG Losartan Potassium-HCTZ 100-25 MG 02/23/2021 12:00:00 AM EDT 1.0 {tablet} active Losartan Po tassium-HCTZ 100-25 MG eCW1 ([facility]) Hydrochlorothiazide 25 MG / Losartan Pot assium 100 MG Oral Tablet Losartan Potassium-HCTZ 100-25 MG Losartan Potassium-HCTZ 100-25 MG 02/23/2021 12:00:00 AM EDT 1.0 {tablet} active Losartan Po tassium-HCTZ 100-25 MG eCW1 ([facility]) Hydrochlorothiazide 25 MG / Losartan Pot assium 100 MG Oral Tablet Losartan Potassium-HCTZ 100-25 MG Losartan Potassium-HCTZ 100-25 MG 02/23/2021 12:00:00 AM EDT 1.0 {tablet} active Losartan Po tassium-HCTZ 100-25 MG eCW1 ([facility]) Meclizine Hydrochloride 25 MG Oral Tablet Meclizine HC l 25 MG Meclizine HCl 25 MG 01/28/2021 12:00:00 AM EDT active Meclizine HCl 25 MG eCW1 ([facility]) Meclizine Hydrochloride 25 MG Oral Tablet Meclizine HC l 25 MG Meclizine HCl 25 MG 01/28/2021 12:00:00 AM EDT active Meclizine HCl 25 MG eCW1 ([facility]) Meclizine Hydrochloride 25 MG Oral Tablet Meclizine HC l 25 MG Meclizine HCl 25 MG 01/28/2021 12:00:00 AM EDT active Meclizine HCl 25 MG eCW1 ([facility]) Meclizine Hydrochloride 25 MG Oral Tablet Meclizine HC l 25 MG Meclizine HCl 25 MG 01/28/2021 12:00:00 AM EDT active Meclizine HCl 25 MG eCW1 ([facility]) Meclizine Hydrochloride 25 MG Oral Tablet Meclizine HC l 25 MG Meclizine HCl 25 MG 01/28/2021 12:00:00 AM EDT active Meclizine HCl 25 MG eCW1 ([facility]) Meclizine Hydrochloride 25 MG Oral Tablet Meclizine HC l 25 MG Meclizine HCl 25 MG 01/28/2021 12:00:00 AM EDT active Meclizine HCl 25 MG eCW1 ([facility]) Meclizine Hydrochloride 25 MG Oral Tablet Meclizine HC l 25 MG Meclizine HCl 25 MG 01/28/2021 12:00:00 AM EDT active Meclizine HCl 25 MG eCW1 ([facility]) Meclizine Hydrochloride 25 MG Oral Tablet Meclizine HC l 25 MG Meclizine HCl 25 MG 01/28/2021 12:00:00 AM EDT active Meclizine HCl 25 MG eCW1 ([facility]) Meclizine Hydrochloride 25 MG Oral Tablet Meclizine HC l 25 MG Meclizine HCl 25 MG 01/28/2021 12:00:00 AM EDT active Meclizine HCl 25 MG eCW1 ([facility]) Meclizine Hydrochloride 25 MG Oral Tablet Meclizine HC l 25 MG Meclizine HCl 25 MG 01/28/2021 12:00:00 AM EDT active Meclizine HCl 25 MG eCW1 ([facility]) Hydrochlorothiazide 12.5 MG / Losartan P otassium 50 MG Oral Tablet Losartan Potassium-HCTZ 50-12.5 MG Losartan Potassium-HCTZ 50-12.5 MG 12/17/2020 12:00:00 AM EDT 1.0 {tablet} active Losartan Po tassium-HCTZ 50-12.5 MG eCW1 ([facility]) Hydrochlorothiazide 12.5 MG / Losartan P otassium 50 MG Oral Tablet Losartan Potassium-HCTZ 50-12.5 MG Losartan Potassium-HCTZ 50-12.5 MG 12/17/2020 12:00:00 AM EDT 1.0 {tablet} active Losartan Po tassium-HCTZ 50-12.5 MG eCW1 ([facility]) Hydrochlorothiazide 12.5 MG / Losartan P otassium 50 MG Oral Tablet Losartan Potassium-HCTZ 50-12.5 MG Losartan Potassium-HCTZ 50-12.5 MG 12/17/2020 12:00:00 AM EDT 1.0 {tablet} active Losartan Po tassium-HCTZ 50-12.5 MG eCW1 ([facility]) Hydrochlorothiazide 12.5 MG / Losartan P otassium 50 MG Oral Tablet Losartan Potassium-HCTZ 50-12.5 MG Losartan Potassium-HCTZ 50-12.5 MG 12/17/2020 12:00:00 AM EDT 1.0 {tablet} active Losartan Po tassium-HCTZ 50-12.5 MG eCW1 ([facility]) Hydrochlorothiazide 12.5 MG / Losartan P otassium 50 MG Oral Tablet Losartan Potassium-HCTZ 50-12.5 MG Losartan Potassium-HCTZ 50-12.5 MG 12/17/2020 12:00:00 AM EDT 1.0 {tablet} active Losartan Po tassium-HCTZ 50-12.5 MG eCW1 ([facility]) Hydrochlorothiazide 12.5 MG / Losartan P otassium 50 MG Oral Tablet Losartan Potassium-HCTZ 50-12.5 MG Losartan Potassium-HCTZ 50-12.5 MG 12/17/2020 12:00:00 AM EDT 1.0 {tablet} active Losartan Po tassium-HCTZ 50-12.5 MG eCW1 ([facility]) Hydrochlorothiazide 12.5 MG / Losartan P otassium 50 MG Oral Tablet Losartan Potassium-HCTZ 50-12.5 MG Losartan Potassium-HCTZ 50-12.5 MG 12/17/2020 12:00:00 AM EDT 1.0 {tablet} active Losartan Po tassium-HCTZ 50-12.5 MG eCW1 ([facility]) Hydrochlorothiazide 12.5 MG / Losartan P otassium 50 MG Oral Tablet Losartan Potassium-HCTZ 50-12.5 MG Losartan Potassium-HCTZ 50-12.5 MG 12/17/2020 12:00:00 AM EDT 1.0 {tablet} active Losartan Po tassium-HCTZ 50-12.5 MG eCW1 ([facility]) Hydrochlorothiazide 12.5 MG / Losartan P otassium 50 MG Oral Tablet Losartan Potassium-HCTZ 50-12.5 MG Losartan Potassium-HCTZ 50-12.5 MG 12/17/2020 12:00:00 AM EDT 1.0 {tablet} active Losartan Po tassium-HCTZ 50-12.5 MG eCW1 ([facility]) Insurance Providers Payer name Policy type / Coverage type Policy ID Covered libertarian ID Covered libertarian's relationship to aviles Policy Aviles Plan Information / [id number] Other 01 [id number] [facility] MEDICAID [id number] SP [id number] SELF PAY ONLY [id number] SP [id number] Problems, Conditions, and Diagnoses Code Display Name Description Problem Type Effective Dates Data Source(s) G25.81 [id number] Restless leg syndrome Problem 03/04/2021 12: 00:00 AM EDT eCW1 ([facility]) G56.03 [id number] Bilateral carpal tunnel syndrome Problem 03/04/2021 12:00:00 AM EDT eCW1 ([facility]) I10 [id number] Hypertension, unspecified type Problem 12/17 12:00:00 AM EDT eCW1 ([facility]) E11.9 [id number] Type 2 diabetes joe itus without complication, without long-term current use of insulin Problem 12/17/2020 12:00:00 AM EDT eCW1 ([facility]) G89.29 [id number] Other chronic pain Problem 12/17/2020 12:00: 00 AM EDT eCW1 ([facility]) Surgeries/Procedures Procedure Description Date Indications Data Source(s) Imm: Flublok Quadrivalent 18 years & older 0.5mL IM Influenz a 03/25/2021 12:00:00 AM EDT eCW1 ([facility]) Results ID Date Data Source [id number] 02/14/2021 12:06:00 AM EDT [facility] Name Value Range Interpretation Code Description Data Mer rce(s) Supporting Document(s) SARS coronavirus 2 RNA [Presence] in Res piratory specimen by SARITA with probe detection NEGATIVE [facility] This lab was ordered by [facility] a nd reported by [facility]. ID Date Data Source [id number] 01/23/2021 02:46:00 AM EDT [facility] Name Value Range Interpretation Code Description Data Mer rce(s) Supporting Document(s) SARS coronavirus 2 RNA [Presence] in Res piratory specimen by SARITA with probe detection NEGATIVE [facility] This lab was ordered by [facility] a nd reported by [facility]. ID Date Data Source LIPID PANEL (CARDIAC RISK) 12/18/2020 12:00:00 AM EDT eCW1 ( [facility]) Name Value Range Interpretation Code Description Data Mer rce(s) Supporting Document(s) Cholesterol [Moles/volume] in Serum or Plasma 180 <200 CHOLESTEROL LEVEL eCW1 ([facility]) Triglyceride [Mass/volume] in Serum or Plasma by calculation 122 <150 TRIGLYCERIDES LEVEL eCW1 ([facility]) Cholesterol in LDL [Mass/volume] in Serum or Plasma by calculation 116 <100 LDL CHOLESTEROL eCW1 ([facility]) Cholesterol in HDL [Moles/volume] in Serum or Plasma 40 >40 HDL CHOLESTEROL eCW1 ([facility]) 140 NON-HDL-C eCW1 ([facility]) 4.500 <5 CHOLESTEROL RISK RATIO eCW1 ([facility]) ID Date Data Source [id number] 12/18/2020 12:00:00 AM EDT eCW1 ([facility]) Name Value Range Interpretation Code Description Data Mer rce(s) Supporting Document(s) Hemoglobin A1c/Hemoglobin.total in Blood 5.7 HEMOGLOBIN A1c eCW1 ([facility]) ID Date Data Source FREE T4 & TSH PANEL 12/18/2020 12:00:00 AM EDT eCW1 ([facility]) Name Value Range Interpretation Code Description Data Mer rce(s) Supporting Document(s) 0.854 0.358-3.740 THYROID STIMULATING HORM ONE eCW1 ([facility]) 0.98 0.76-1.46 FREE T4 eCW1 ([facility]) ID Date Data Source Comprehensive Metabolic Profile (CMP) 12/18/2020 12:00:00 AM EDT eCW1 ([facility]) Name Value Range Interpretation Code Description Data Mer rce(s) Supporting Document(s) 14 7-18 BLOOD UREA NITROGEN eCW1 ([facility]) 110 70-100 GLUCOSE, FASTING eCW1 ([facility]) 0.65 0.55-1.30 CREATININE FOR GFR eCW1 ([facility]) > 60.0 >45 GLOMERULAR FILTRATION RATE eCW 1 ([facility]) 140 136-145 SODIUM LEVEL eCW1 ([facility]) 30 21-32 CARBON DIOXIDE LEVEL eCW1 ([facility]) 106 98-107 CHLORIDE LEVEL eCW1 ([facility]) 3.6 3.5-5.1 POTASSIUM SERUM eCW1 ([facility]) 27 12-78 ALT/SGPT eCW1 ([facility]) 20 7-37 AST/SGOT eCW1 ([facility]) 8.7 8.8-10.2 CALCIUM LEVEL eCW1 ([facility]) 0.4 0.2-1.0 BILIRUBIN,TOTAL eCW1 ([facility]) 7.0 6.4-8.2 TOTAL PROTEIN eCW1 ([facility]) 73 45-117 ALKALINE PHOSPHATASE eCW1 ([facility]) 3.7 3.2-5.2 ALBUMIN eCW1 ([facility]) 1.1 1.2-2.2 ALBUMIN/GLOBULIN RATIO eCW1 ([facility]) ID Date Data Source CBC with Differential 12/18/2020 12:00:00 AM EDT eCW1 ([facility]) Name Value Range Interpretation Code Description Data Mer rce(s) Supporting Document(s) 6.4 4.0-10.0 WHITE BLOOD COUNT eCW1 ([facility]) 12.4 12.0-15.5 HEMOGLOBIN eCW1 ([facility]) 4.31 4.00-5.40 RED BLOOD COUNT eCW1 ([facility]) 28.8 27.0-33.0 MEAN CORPUSCULAR HEMOGLOB IN eCW1 ([facility]) 88.9 80.0-96.0 MEAN CORPUSCULAR VOLUME e CW1 ([facility]) 38.3 36.0-47.0 HEMATOCRIT eCW1 ([facility] hospital) 12.8 11.5-14.5 RED CELL DISTRIBUTION WID TH eCW1 ([facility]) 32.4 32.0-36.5 MEAN CORPUSCULAR HGB CONC eCW1 ([facility]) 189 150-450 PLATELET COUNT, AUTOMATED eCW1 ([facility]) 43.5 24.0-44.0 LYMPH % eCW1 ([facility]) 5.6 2.0-8.0 MONO % eCW1 ([facility]) 48.9 36.0-66.0 NEUTROPHILS % eCW1 ([facility]) 0.6 0.0-1.0 BASO % eCW1 ([facility]) 3.1 1.5-8.5 NEUTROPHILS # eCW1 ([facility]) 1.2 0.0-3.0 EOS % eCW1 ([facility]) 2.8 1.5-5.0 LYMPH # eCW1 ([facility]) 0.1 0.0-0.5 EOS # eCW1 ([facility]) 0.4 0.0-0.8 MONO # eCW1 ([facility]) 0.0 0.0-0.2 BASO # eCW1 ([facility]) Procedure Social History Code Duration Value Status Description Data Source(s ) Smoking 03/04/2021 12:00:00 AM EDT Never Smoker completed Never S moker eCW1 ([facility]) Smoking 03/04/2021 12:00:00 AM EDT Never Smoker completed Never S moker eCW1 ([facility]) Smoking 03/04/2021 12:00:00 AM EDT Never Smoker completed Never S moker eCW1 ([facility]) Smoking 03/04/2021 12:00:00 AM EDT Never Smoker completed Never S moker eCW1 ([facility]) Smoking 03/04/2021 12:00:00 AM EDT Never Smoker completed Never S moker eCW1 ([facility]) Smoking 02/23/2021 12:00:00 AM EDT Never Smoker completed Never S moker eCW1 ([facility]) Smoking 01/28/2021 12:00:00 AM EDT Never Smoker completed Never S moker eCW1 ([facility]) Smoking 01/28/2021 12:00:00 AM EDT Never Smoker completed Never S moker eCW1 ([facility]) Smoking 01/28/2021 12:00:00 AM EDT Never Smoker completed Never S moker eCW1 ([facility]) Smoking 01/28/2021 12:00:00 AM EDT Never Smoker completed Never S moker eCW1 ([facility]) Smoking 12/17/2020 12:00:00 AM EDT Never Smoker completed Never S moker eCW1 ([facility]) Smoking 12/17/2020 12:00:00 AM EDT Never Smoker completed Never S moker eCW1 ([facility]) Smoking 12/17/2020 12:00:00 AM EDT Never Smoker completed Never S moker eCW1 ([facility]) Smoking 12/17/2020 12:00:00 AM EDT Never Smoker completed Never S moker eCW1 ([facility]) Smoking 12/17/2020 12:00:00 AM EDT Never Smoker completed Never S moker eCW1 ([facility]) Vital Signs ID Date Data Source UNK Name Value Range Interpretation Code Description Data Source(s) Body weight 123.8 [lb_av] 123.8 [lb_av] eCW1 ([facility]) Body weight 56.16 kg 56.16 kg eCW1 ([facility]) Body height 60 [in_i] 60 [in_i] eCW1 ([facility]) Body mass index (BMI) [Ratio] 24.18 kg/m2 24.18 kg/m2 eCW1 ([facility]) Heart rate 59 /min 59 /min eCW1 ([facility]) Respiratory rate 17 /min 17 /min eCW1 ([facility]) Body temperature 96.6 [degF] 96.6 [degF] eCW1 ( [facility]) Systolic blood pressure 108 mm[Hg] 108 mm[Hg] e CW1 ([facility]) Diastolic blood pressure 58 mm[Hg] 58 mm[Hg] eCW1 ([facility]) Body weight 123 [lb_av] 123 [lb_av] eCW1 ([facility]) Body weight 55.79 kg 55.79 kg eCW1 ([facility]) Body height 60 [in_i] 60 [in_i] eCW1 ([facility]) Body mass index (BMI) [Ratio] 24.02 kg/m2 24.02 kg/m2 eCW1 ([facility]) Heart rate 52 /min 52 /min eCW1 ([facility]) Respiratory rate 18 /min 18 /min eCW1 ([facility]) Body temperature 96.8 [degF] 96.8 [degF] eCW1 ( [facility]) Systolic blood pressure 173 mm[Hg] 173 mm[Hg] e CW1 ([facility]) Diastolic blood pressure 74 mm[Hg] 74 mm[Hg] eCW1 ([facility]) Body weight 119.6 [lb_av] 119.6 [lb_av] eCW1 ([facility]) Body weight 54.25 kg 54.25 kg eCW1 ([facility]) Body height 60 [in_i] 60 [in_i] eCW1 ([facility]) Body mass index (BMI) [Ratio] 23.36 kg/m2 23.36 kg/m2 eCW1 ([facility]) Heart rate 57 /min 57 /min eCW1 ([facility]) Respiratory rate 17 /min 17 /min eCW1 ([facility]) Body temperature 96.8 [degF] 96.8 [degF] eCW1 ( [facility]) Systolic blood pressure 128 mm[Hg] 128 mm[Hg] e CW1 ([facility]) Diastolic blood pressure 59 mm[Hg] 59 mm[Hg] eCW1 ([facility]) Body weight 120.4 [lb_av] 120.4 [lb_av] eCW1 ([facility]) Body height 60 [in_i] 60 [in_i] eCW1 ([facility]) Body mass index (BMI) [Ratio] 23.51 kg/m2 23.51 kg/m2 eCW1 ([facility]) Heart rate 52 /min 52 /min eCW1 ([facility]) Respiratory rate 17 /min 17 /min eCW1 ([facility]) Body temperature 98.1 [degF] 98.1 [degF] eCW1 ( [facility]) Systolic blood pressure 170 mm[Hg] 170 mm[Hg] e CW1 ([facility]) Diastolic blood pressure 79 mm[Hg] 79 mm[Hg] eCW1 ([facility]) Patient Treatment Plan of Care Planned Activity Planned Date Details Description Data Source (s) Adjustable Wrist Brace - 03/04/2021 12:00:00 AM EDT eCW1 ([facility]) ropinirole 0.5 MG Oral Tablet 03/04/2021 12:00:00 AM EDT eCW1 ([facility]) Adjustable Wrist Brace - 03/04/2021 12:00:00 AM EDT eCW1 ([facility]) ropinirole 0.5 MG Oral Tablet 03/04/2021 12:00:00 AM EDT eCW1 ([facility]) Adjustable Wrist Brace - 03/04/2021 12:00:00 AM EDT eCW1 ([facility]) ropinirole 0.5 MG Oral Tablet 03/04/2021 12:00:00 AM EDT eCW1 ([facility]) Adjustable Wrist Brace - 03/04/2021 12:00:00 AM EDT eCW1 ([facility]) ropinirole 0.5 MG Oral Tablet 03/04/2021 12:00:00 AM EDT eCW1 ([facility]) Adjustable Wrist Brace - 03/04/2021 12:00:00 AM EDT eCW1 ([facility]) ropinirole 0.5 MG Oral Tablet 03/04/2021 12:00:00 AM EDT eCW1 ([facility]) Hydrochlorothiazide 25 MG / Losartan Potassium 100 MG Oral Tablet 02/23/2021 12:00:00 AM EDT eCW1 ([facility]) Meclizine Hydrochloride 25 MG Oral Tablet 01/28/2021 12:00:00 AM ED T eCW1 ([facility]) Meclizine Hydrochloride 25 MG Oral Tablet 01/28/2021 12:00:00 AM ED T eCW1 ([facility]) Hydrochlorothiazide 12.5 MG / Losartan Potassium 50 MG Oral Tablet 12/17/2020 12:00:00 AM EDT eCW1 ([facility]) Hydrochlorothiazide 12.5 MG / Losartan Potassium 50 MG Oral Tablet 12/17/2020 12:00:00 AM EDT eCW1 ([facility]) Hydrochlorothiazide 12.5 MG / Losartan Potassium 50 MG Oral Tablet 12/17/2020 12:00:00 AM EDT eCW1 ([facility]) Hydrochlorothiazide 12.5 MG / Losartan Potassium 50 MG Oral Tablet 12/17/2020 12:00:00 AM EDT eCW1 ([facility]) Hydrochlorothiazide 12.5 MG / Losartan Potassium 50 MG Oral Tablet 12/17/2020 12:00:00 AM EDT eCW1 ([facility])
[2021-05-24] MEDS ORDERED: CLOPIDOGREL 300 MG TAB (PLAVIX) PO STA (21:56)
[2021-05-24] MEDS ORDERED: ASPIRIN 81 MG CHEW TABLET PO ONE (22:00)
[2021-05-24 23:02] LABS: RSV AMPLIFICATION NEGATIVE (NEGATIVE)
[2021-05-24 23:05] VITALS: BP 140/65
--- NOTE | 2021-05-25 10:00 | CR ---
CONSULTATION DATE: 05/24/2021 REFERRING PHYSICIAN: Dr. Lugo REASON FOR CONSULTATION: Complete heart block HISTORY OF PRESENT ILLNESS: This is a 60-year-old woman with no previously known heart disease to her knowledge. She has systemic hypertension, type 2 diabetes, gastroesophageal reflux disease (GERD), and hypercholesterolemia. The patient does not speak [place]. Her son provided translation. The patient has a one-week history of recurrent chest ache felt substernal with radiation to the neck and part way into her head associated with shortness of breath occurrent with very minimal activity such as walking 5-10 feet. The episodes have been lasting up to 15 minutes at a time and relieved with rest. The episodes have become progressively more frequent in the past one week and have occurred multiple times over the course of today. For the past two days, she has been having dizziness and lightheadedness. No near-syncope or syncope. No leg or ankle swelling. No embolic events or stroke-like symptoms. No known adverse drug reactions. MEDICATIONS PRIOR TO ADMISSION: - acetaminophen 500 mg b.i.d. - atenolol 50 mg at night (last dose yesterday evening) - atorvastatin 10 mg daily - gabapentin 400 mg t.i.d. - losartan/hydrochlorothiazide 100 mg-12.5 mg once daily - metformin 500 mg daily - omeprazole 40mg daily - Bisacodyl 10 mg at bedtime PAST MEDICAL AND SURGICAL HISTORY: 1. Systemic hypertension. 2. Type 2 diabetes. 3. Gastroesophageal reflux disease (GERD). 4. Hypercholesterolemia. 5. Back surgery (lower back) times 2. 6. Appendectomy. FAMILY HISTORY: Deferred. SOCIAL HISTORY: The patient does not speak [place]. . Resident of [place]. Nonsmoker. No alcohol. REVIEW OF SYSTEMS: As per history of present illness (HPI) and past history above. Wears glasses. Bilateral cataract extractions with lens implants. Diabetic neuropathy. Urinary incontinence. Gastric reflux. Back pain (low back pain). All other 10-point review of systems negative. PHYSICAL EXAMINATION: Blood pressure 145/64, heart rate 33 (regular), respiratory rate 16, 02 saturation 100% on room air. Temperature 96.7. The patient appears overweight. Height 68 inches, weight 60.4 kg, BMI 26.0. Appears to be of [place] ethnicity. No conjunctival pallor, scleral icterus or xanthelasmas. Oral mucosa is moist and without pallor or cyanosis. Jugular venous pulsations were at 3 cm. Trachea midline. No palpable thyroid. No clubbing of the nail beds, cyanosis or splinter hemorrhages. No skin lesions, skin pallor or icterus. Difficult to tell orientation due to language barrier. In taking the history with the son interpreting, she appeared to be appropriately oriented to person, place and time. Mood and affect appeared normal. Curvature of the spine appeared normal. Gait not appropriately tested at this time. Gross motor strength and tone appeared normal. No fasciculations or tremors. Respiratory expansion and effort was good. No dullness to percussion. No crackles or wheezes. No palpable apex beat. No parasternal lifts, heaves, thrills or palpable heart sounds. First heart sound was variable in intensity. Normal second heart sound. No S3 or S4, or murmurs. Carotids are normal in volume and contour without bruits. No palpable abdominal aorta. No abdominal bruits. Femoral pulses not checked. Pedal pulses normal. No peripheral edema or varicose veins. Abdomen was mildly obese, soft, nontender with normal bowel sounds. No hepatosplenomegaly or other organomegaly. Liver span difficult to assess due to abdominal obesity. Stool for occult blood deferred. Electrocardiogram, 05/24/2021 at 2030 hours shows sinus rhythm with complete heart block, narrow QRS complexes, junctional escape heart rate of 37 beats per minute, no pathologic Q waves. Nonspecific ST-T abnormalities. Abnormal ECG. LABORATORY DATA: Laboratory work from 05/24/2021 was reviewed: WBC 8.7, hemoglobin 10.7, hematocrit 33.1, platelets 187. PT/INR 1.08. CPK 74, CPK-MB 1.1-dtszjhgz-T 17.0. Sodium 147, potassium 3.5, chloride 115, CO2 of 25, BUN 15, creatinine 0.91, estimated GFR greater than 60, glucose 99, calcium 7.3, albumin 2.7, total protein 5.5, lipase 160 (normal). IMAGING DATA: Chest x-ray image not presently available for my review in [employer] EMR. No preliminary report available. ASSESSMENT AND RECOMMENDATIONS: 1. Complete heart block. I believe that this patient ultimately will require a permanent dual-chamber pacemaker and this was discussed with the ER doctor as well as the patient's son and the patient with the son translating. My concern is that the patient has concurrent unstable angina symptoms and I think it is certainly a possibility that myocardial ischemia may be responsible for the development of complete heart block and if the coronary circulation can be improved with percutaneous coronary intervention, then the complete heart block might resolve. If it does not have significant CAD to account for the complete heart block, then she will require a permanent pacemaker. I think it is unlikely that the dosage of atenolol 50 mg once a day with the last dose taken last evening would account for the patient to have complete heart block, although it is not impossible. I recommend placing atenolol on hold. 2. Unstable angina. One-week history of progressive visceral anterior chest pain going to the neck occurring with minimal activity and associated with shortness of breath. The first high sensitivity troponin-I was negative and CPK-MB was negative. ECG does not show any pathologic Q waves or ischemic repolarization abnormalities. However, she gives a very impressive story for unstable angina. I believe that this patient should undergo cardiac catheterization with possible percutaneous coronary intervention. She is to receive Plavix and aspirin prior to being transferred to [facility]. I spoke with the investment consultant business systems consultant at [facility] rachel (Dr. Diane) who was very kind to accept the patient to [facility] in transfer for consideration of cardiac catheterization and possible permanent pacemaker placement. 3. Systemic hypertension, mildly elevated systolic blood pressure observed in the ER. Recommend not treating this level of hypertension in the setting of a slow ventricular rate. Following pacemaker placement, a faster heart rate will likely allow for a lower systolic blood pressure. I recommend placing atenolol on hold for now. Lisinopril/hydrochlorothiazide can continue. 4. Hypercholesterolemia. No recent values available for my review. She is on statin therapy. Suggest increasing atorvastatin to 80 mg daily at bedtime. MTDD
--- NOTE | 2021-05-25 11:49 | REP ---
INDICATION: CHEST PAIN. COMPARISON: 02/13/2021. TECHNIQUE: Single portable AP view of the chest was performed. FINDINGS: There is mild cardiomegaly. There is a diffuse increase in interstitial markings. No consolidating infiltrate is seen. Mediastinal silhouette is unchanged. Gonsalez rods are again noted. IMPRESSION: Mild cardiomegaly. Diffuse increased interstitial markings may be chronic, however, mild interstitial edema or pneumonitis is not excluded. A preliminary report was provided by [facility] at the time of the exam. <Electronically signed by Willy Barr > 05/25/21 [id number]
--- NOTE | 2021-05-25 14:19 | ECGEPIP ---
[facility] - ED Test Date: 2021-05-24 Pat Name: MOST QUINN Department: Room: - Gender: Female Front Services Agent: benedicto : 1960 Requested By: ODETTE Rojo Order Number: [id number] Reading MD: Josiah Zuniga Measurements Intervals [place] Rate: 37 P: 52 AL: QRS: 34 QRSD: 88 T: 25 QT: 540 QTc: 423 Interpretive Statements Complete heart block previous tracing done 02-14-21 was normal sinus rhythm Electronically Signed on 05-25-2021 14:19:19 EST by Josiah Zuniga
== END 2021-05-24 23:12 | disposition short-term general hospital (02) ==
LOC: M ED 20:27
DX: I44.39 Other atrioventricular block (principal); E11.9 Type 2 diabetes mellitus without complications; I10 Essential (primary) hypertension; K21.9 Gastro-esophageal reflux disease without esophagitis; E78.00 Pure hypercholesterolemia, unspecified; Z79.899 Other long term (current) drug therapy; Z79.84 Long term (current) use of oral hypoglycemic drugs

== ENCOUNTER 2021-08-18 19:02 | Emergency (ER) | payer MEDICAID, SELFPAY ==
[~2021-08-18] VITALS: Ht 152.4 cm; Wt 57.7 kg
[2021-08-18 19:52] LABS: BASO # 0.1 10^3/uL (0.0-0.2); BASO % 0.6 % (0.0-1.0); EOS # 0.1 10^3/uL (0.0-0.5); EOS % 1.2 % (0.0-3.0); HEMATOCRIT 36.9 % (36.0-47.0); HEMOGLOBIN 12.1 g/dl (12.0-15.5); LYMPH # 3.9 10^3/uL (1.5-5.0); LYMPH % 43.1 % (24.0-44.0); MEAN CORPUSCULAR HEMOGLOBIN 28.9 pg (27.0-33.0); MEAN CORPUSCULAR HGB CONC 32.8 g/dl (32.0-36.5); MEAN CORPUSCULAR VOLUME 88.1 fl (80.0-96.0); MONO # 0.5 10^3/uL (0.0-0.8); NEUTROPHILS # 4.4 10^3/uL (1.5-8.5); NEUTROPHILS % 48.4 % (36.0-66.0); PLATELET COUNT, AUTOMATED 246 10^3/uL (150-450); RED BLOOD COUNT 4.19 10^6/uL (4.00-5.40)
[2021-08-18] MEDS ORDERED: ASPIRIN 81 MG CHEW TABLET PO ONE (20:15)
[2021-08-18 20:17] LABS: CK-MB VALUE MASS 1.3 NG/ML (<3.6); MB/CK RELATIVE INDEX 1.09 (< OR =4)
[2021-08-18 20:19] LABS: ALBUMIN 3.8 GM/DL (3.2-5.2); ALT/SGPT 33 U/L (12-78); BILIRUBIN,DIRECT < 0.1 MG/DL (0.0-0.2); BILIRUBIN,TOTAL 0.2 MG/DL (0.2-1.0); BLOOD UREA NITROGEN 13 MG/DL (7-18); CALCIUM LEVEL 9.5 MG/DL (8.8-10.2); CARBON DIOXIDE LEVEL 30 MEQ/L (21-32); CHLORIDE LEVEL 107 MEQ/L (98-107); CREATININE FOR GFR 0.78 MG/DL (0.55-1.30); GLOMERULAR FILTRATION RATE > 60.0 (>45); GLUCOSE, FASTING 104 MG/DL (70-100); LIPASE 309 U/L (73-393); POTASSIUM SERUM 4.1 MEQ/L (3.5-5.1); SODIUM LEVEL 140 MEQ/L (136-145); TOTAL PROTEIN 7.6 GM/DL (6.4-8.2)
[2021-08-18] MEDS ORDERED: ISOVUE-370 76% 100ML VIAL As Ordered ONE (20:28)
[2021-08-18 20:50] LABS: C REACTIVE PROTEIN QUANTITATIV < 0.30 MG/DL (0.00-0.30); NT-PRO BNP 142 PG/ML (<125)
[2021-08-18 21:04] LABS: CK-MB VALUE MASS < 1.0 NG/ML (<3.6); CPK CREATINE PHOSPHOKINASE 97 U/L (26-192); MB/CK RELATIVE INDEX 1.03 (< OR =4)
[2021-08-18] MEDS ORDERED: LIDOCAINE 5% (LIDODERM) PATCH TD ONE (22:40)
[2021-08-18 22:45] VITALS: BP 173/86
[2021-08-18] MEDS ORDERED: LIDO5DIS41 TOP (22:53)
[2021-08-19] MEDS ORDERED: **NOTE PATIENT COMMENT** MISC XX SCH (21:00)
== END 2021-08-18 23:04 | disposition home or self-care (01) ==
LOC: M ED 19:02
DX: R07.89 Other chest pain (principal); R06.00 Dyspnea, unspecified; L91.0 Hypertrophic scar; E11.9 Type 2 diabetes mellitus without complications; E78.5 Hyperlipidemia, unspecified; K21.9 Gastro-esophageal reflux disease without esophagitis; G95.9 Disease of spinal cord, unspecified; Z79.899 Other long term (current) drug therapy; Z79.84 Long term (current) use of oral hypoglycemic drugs
CPT/HCPCS: 36415; 71045; 71275; 80048; 80076; 82550; 82553; 83690; 83880; 85025; 86140; 93005; 93041; 94760; 99285; Q9967

== ENCOUNTER → 2021-11-19 | Outpatient (CLI) | payer MEDICAID ==
[~2021-11-19] MED LIST changes: +ASPI-161 PO; +LIDO5DIS41 TOP; +METF500T13 PO; +PANT20TA6 PO
== END ==
LOC: M LAB 09:39
PROVIDERS: ATTEND Internal Medicine Cardiovascular Disease
DX: R06.02 Shortness of breath (principal)

== ENCOUNTER → 2021-11-21 | Outpatient (CLI) | payer MEDICAID | LOC: M LABSMTC 11:38 | PROVIDERS: ATTEND Anesthesiology | DX: Z01.812 Encounter for preprocedural laboratory examination (principal) ==

== ENCOUNTER 2021-11-25 11:08 | Day surgery (SDC) | payer MEDICAID ==
[~2021-11-25] VITALS: Ht 152.4 cm; Wt 54.9 kg
[~2021-11-25 11:08] MED LIST changes: +NS 1,000 ML IV ONE
[2021-11-25] MEDS ORDERED: propofoL 200 MG/20 ML VIAL As Ordered ONE (12:21)
[2021-11-25] MEDS ORDERED: LIDOCAINE 2% 100MG/5ML SDV (FOR ANES.) As Ordered ONE (12:21)
[2021-11-25] MEDS ORDERED: fentaNYL 100 MCG/2 ML INJECTION As Ordered ONE (12:23)
[2021-11-25 13:10] VITALS: BP 161/70
== END 2021-11-25 13:19 | disposition home or self-care (01) ==
LOC: M OPP 11:08
PROVIDERS: ATTEND Internal Medicine Gastroenterology
DX: K29.70 Gastritis, unspecified, without bleeding (principal); K28.9 Gastrojejunal ulcer, unspecified as acute or chronic, without hemorrhage or perforation; R12 Heartburn; R14.2 Eructation; Z79.2 Long term (current) use of antibiotics; Z79.82 Long term (current) use of aspirin; Z79.84 Long term (current) use of oral hypoglycemic drugs; Z79.899 Other long term (current) drug therapy; Z95.0 Presence of cardiac pacemaker
CPT/HCPCS: 43239; 88305; J3010

== ENCOUNTER → 2022-02-03 | Outpatient (CLI) | payer MEDICAID ==
[~2022-02-03] MED LIST changes: -NS 1,000 ML IV ONE
[2022-02-03 16:27] LABS: BASO # 0.1 10^3/uL (0.0-0.2); BASO % 0.6 % (0.0-1.0); EOS # 0.1 10^3/uL (0.0-0.5); EOS % 1.6 % (0.0-3.0); HEMATOCRIT 34.7 % (36.0-47.0); HEMOGLOBIN 11.2 g/dl (12.0-15.5); LYMPH # 3.9 10^3/uL (1.5-5.0); LYMPH % 46.4 % (24.0-44.0); MEAN CORPUSCULAR HEMOGLOBIN 29.6 pg (27.0-33.0); MEAN CORPUSCULAR HGB CONC 32.3 g/dl (32.0-36.5); MEAN CORPUSCULAR VOLUME 91.6 fl (80.0-96.0); MONO # 0.4 10^3/uL (0.0-0.8); MONO % 5.3 % (2.0-8.0); NEUTROPHILS # 3.8 10^3/uL (1.5-8.5); NEUTROPHILS % 45.7 % (36.0-66.0); PLATELET COUNT, AUTOMATED 169 10^3/uL (150-450); RED BLOOD COUNT 3.79 10^6/uL (4.00-5.40); WHITE BLOOD COUNT 8.3 10^3/uL (4.0-10.0)
[2022-02-03 16:47] LABS: ALBUMIN 3.7 GM/DL (3.2-5.2); ALT/SGPT 27 U/L (12-78); BILIRUBIN,TOTAL 0.3 MG/DL (0.2-1.0); BLOOD UREA NITROGEN 13 MG/DL (7-18); CALCIUM LEVEL 9.3 MG/DL (8.8-10.2); CARBON DIOXIDE LEVEL 29 MEQ/L (21-32); CHLORIDE LEVEL 105 MEQ/L (98-107); CHOLESTEROL LEVEL 102 MG/DL (<200); CHOLESTEROL RISK RATIO 2.914 (<5); CREATININE FOR GFR 0.96 MG/DL (0.55-1.30); GLOMERULAR FILTRATION RATE > 60.0 (>45); GLUCOSE, FASTING 141 MG/DL (70-100); HDL CHOLESTEROL 35 MG/DL (>40); LDL CHOLESTEROL 31 MG/DL (<100); NON-HDL-C 67 MG/DL; POTASSIUM SERUM 3.8 MEQ/L (3.5-5.1); SODIUM LEVEL 138 MEQ/L (136-145); TRIGLYCERIDES LEVEL 182 MG/DL (<150)
[2022-02-03 16:55] LABS: HEMOGLOBIN A1c 5.7 %
== END ==
LOC: M LAB 15:23
PROVIDERS: ATTEND Student in an Organized Health Care Education/Training Program
DX: I10 Essential (primary) hypertension (principal); R73.03 Prediabetes

== ENCOUNTER → 2022-02-19 | Outpatient (CLI) | payer MEDICAID, OTHER | LOC: M LABSMTC 10:35 | PROVIDERS: ATTEND Anesthesiology | DX: Z01.812 Encounter for preprocedural laboratory examination (principal); Z20.822 Contact with and (suspected) exposure to COVID-19 ==

== ENCOUNTER 2022-02-23 07:10 | Day surgery (SDC) | payer MEDICAID, OTHER ==
[~2022-02-23] VITALS: Ht 152.4 cm; Wt 53.5 kg
[~2022-02-23 07:10] MED LIST changes: +LIDOCAINE 2% 100MG/5ML SDV (FOR ANES.) As Ordered ONE; +NS 1,000 ML IV ONE; +propofoL 200 MG/20 ML VIAL As Ordered ONE
[2022-02-23 09:23] VITALS: BP 137/84
== END 2022-02-23 09:53 | disposition home or self-care (01) ==
LOC: M OPP 07:10
PROVIDERS: ATTEND Internal Medicine Gastroenterology
DX: Z12.11 Encounter for screening for malignant neoplasm of colon (principal); D12.2 Benign neoplasm of ascending colon; D12.7 Benign neoplasm of rectosigmoid junction; E11.9 Type 2 diabetes mellitus without complications; K64.4 Residual hemorrhoidal skin tags; K64.8 Other hemorrhoids; I49.5 Sick sinus syndrome; I10 Essential (primary) hypertension; E78.5 Hyperlipidemia, unspecified; Z79.02 Long term (current) use of antithrombotics/antiplatelets; Z79.1 Long term (current) use of non-steroidal anti-inflammatories (NSAID); Z79.84 Long term (current) use of oral hypoglycemic drugs; Z79.891 Long term (current) use of opiate analgesic; Z79.899 Other long term (current) drug therapy

== ENCOUNTER → 2022-07-07 | Outpatient (CLI) | payer MEDICAID ==
[~2022-07-07] MED LIST changes: -LIDOCAINE 2% 100MG/5ML SDV (FOR ANES.) As Ordered ONE; -NS 1,000 ML IV ONE; -propofoL 200 MG/20 ML VIAL As Ordered ONE
== END ==
LOC: M SOG 07:57
PROVIDERS: ATTEND Orthopaedic Surgery
DX: M54.6 Pain in thoracic spine (principal); M54.50 Low back pain, unspecified

== ENCOUNTER → 2022-10-09 | Outpatient (REF) | payer MEDICAID | LOC: M SFHCLERA 14:02 | PROVIDERS: ATTEND Student in an Organized Health Care Education/Training Program | DX: R20.2 Paresthesia of skin (principal); R53.83 Other fatigue; Z53.8 Procedure and treatment not carried out for other reasons ==

== ENCOUNTER → 2022-10-09 | Outpatient (CLI) | payer MEDICAID ==
[2022-10-09 15:46] LABS: BASO % 0.4 % (0.0-1.0); EOS # 0.1 10^3/uL (0.0-0.5); EOS % 1.6 % (0.0-3.0); HEMATOCRIT 32.5 % (36.0-47.0); HEMOGLOBIN 10.6 g/dl (12.0-15.5); LYMPH # 3.1 10^3/uL (1.5-5.0); LYMPH % 43.4 % (24.0-44.0); MEAN CORPUSCULAR HEMOGLOBIN 29.9 pg (27.0-33.0); MEAN CORPUSCULAR HGB CONC 32.6 g/dl (32.0-36.5); MEAN CORPUSCULAR VOLUME 91.8 fl (80.0-96.0); MONO # 0.4 10^3/uL (0.0-0.8); NEUTROPHILS # 3.4 10^3/uL (1.5-8.5); NEUTROPHILS % 48.3 % (36.0-66.0); PLATELET COUNT, AUTOMATED 230 10^3/uL (150-450); RED BLOOD COUNT 3.54 10^6/uL (4.00-5.40)
[2022-10-09 16:13] LABS: ALBUMIN 3.5 G/DL (3.2-5.2); ALKALINE PHOSPHATASE 48 U/L (46-116); ALT/SGPT 22 U/L (7.0-40); AST/SGOT 19 U/L (<34); BILIRUBIN,TOTAL 0.2 MG/DL (0.3-1.2); BLOOD UREA NITROGEN 17 MG/DL (9-23); CARBON DIOXIDE LEVEL 29 MMOL/L (20-31); CHLORIDE LEVEL 105 MMOL/L (98-107); CREATININE FOR GFR 0.83 MG/DL (0.55-1.30); GLOMERULAR FILTRATION RATE > 60.0 (>45); GLUCOSE, FASTING 127 MG/DL (74-106); POTASSIUM SERUM 3.6 MMOL/L (3.5-5.1); SODIUM LEVEL 140 MMOL/L (136-145); TOTAL PROTEIN 6.4 G/DL (5.7-8.2); VITAMIN B12 LEVEL 231 PG/ML (211-911)
[2022-10-09 16:14] LABS: THYROID STIMULATING HORMONE 0.593 uIU/ML (0.55-4.78)
[2022-10-09 16:15] LABS: FREE T4 1.08 NG/DL (0.89-1.76)
== END ==
LOC: M LAB 14:48
PROVIDERS: ATTEND Student in an Organized Health Care Education/Training Program
DX: R20.2 Paresthesia of skin (principal)